=== PATIENT | male | born 1965 | race African-American/Black ===

== ENCOUNTER 2020-09-07 13:59 | Outpatient (RCR) | payer OTHER, SELFPAY | END 2020-11-30 15:50 | disposition home or self-care (01) | LOC: HO.WCC 13:59 | PROVIDERS: PCP Internal Medicine; Visit Provider Physician Assistant | DX: Z09 Encounter for follow-up examination after completed treatment for conditions other than malignant neoplasm (principal); I69.354 Hemiplegia and hemiparesis following cerebral infarction affecting left non-dominant side; I10 Essential (primary) hypertension; Z79.84 Long term (current) use of oral hypoglycemic drugs; Z86.31 Personal history of diabetic foot ulcer | CPT/HCPCS: 10060; 11042; 87071; 87147; 87186; 87205; 99212; 99213 ==

== ENCOUNTER 2020-10-18 14:41 | Outpatient (REF) | payer OTHER, SELFPAY ==
--- NOTE | ~2020-10-18 | XR_ITS ---
EXAMINATION: XR TOES, RIGHT CLINICAL INFORMATION: Ultrasound right great toe. COMPARISON: Radiographs right foot 01/20/2018 TECHNIQUE: 3 views of the right toes were obtained. FINDINGS: There is no acute or healing fracture, dislocation, destructive process. Bony mineralization appears normal. There is no focal decreased bony attenuation, erosive change, or periostitis. There is no gas tracking in the soft tissues. There is some minor spurring dorsal head first proximal phalanx and plantar base first distal phalanx. XR/XR toe RT min 2V IMPRESSION: No bony destructive process, periostitis, or gas tracking in soft tissues.
== END 2020-10-18 14:42 | disposition home or self-care (01) ==
LOC: HO.XRAY 14:41
PROVIDERS: PCP Internal Medicine; Visit Provider Physician Assistant
DX: L97.519 Non-pressure chronic ulcer of other part of right foot with unspecified severity (principal)
CPT/HCPCS: 73660

== ENCOUNTER 2020-11-02 07:37 | Emergency (ER) | payer OTHER, SELFPAY ==
--- NOTE | ~2020-11-02 | CT_ITS ---
EXAMINATION: CT ABDOMEN AND PELVIS WITH CONTRAST CLINICAL INFORMATION: Abdominal pain. COMPARISON: CT abdomen and pelvis with IV contrast 03/17/2018. TECHNIQUE: Multidetector volumetric images were obtained from the superior aspect of the liver through the pubic symphysis following administration 85 mL of Omnipaque 350 intravenous contrast. Sagittal and coronal reformatted images were obtained on the technologist's workstation. Oral contrast: No This CT examination was performed using dose optimization techniques as appropriate, variously including the following: *Automated exposure control *Adjustment of mA and/or kV according to patient size (this includes techniques or standardized protocols for targeted exams where dose is matched to indication/reason for exam; i.e. extremities or head) *Use of iterative reconstruction technique DLP: 1460 mGy-cm FINDINGS: LUNG BASES: There is minimal right basilar atelectasis with elevated right hemidiaphragm. The left lung is clear. The heart size is normal. LIVER, GALLBLADDER, AND BILIARY TREE: The liver is normal in size, shape, and attenuation. No focal hepatic lesion or biliary ductal dilatation is present. The gallbladder has been surgically removed. PANCREAS: Unremarkable. SPLEEN: Unremarkable. ADRENAL GLANDS: Unremarkable. KIDNEYS AND URETERS: The kidneys are normal in size, shape, and attenuation. No hydronephrosis, hydroureter, or calculi seen. There is bilateral perinephric stranding. BLADDER: There is a Pries's catheter in a nondistended urinary bladder. GASTROINTESTINAL TRACT: There is moderate stool seen throughout the colon without any significant distention. The small bowel loops are normal caliber. The appendix is normal caliber. ABDOMINAL WALL: There is small umbilical hernia containing fat. Also visualized is a small ventral hernia to the left of the GE junction containing fat. LYMPH NODES: Normal. VASCULAR: Unremarkable. PELVIC VISCERA: There is a large amount of impacted stool in the rectum and sigmoid colon. There is no free fluid. OSSEOUS STRUCTURES: There is no lytic or sclerotic process seen. There is mild degenerative disc changes with ventral spondylosis throughout dorsal and lumbar spine. No lytic or sclerotic process seen. CT/CT abdomen pelvis w con IMPRESSION: Likely fecal impaction with constipation. No obstruction seen. The bladder is nondistended with a Pires's catheter within. Cholecystectomy.
--- NOTE | ~2020-11-02 | XR_ITS ---
EXAMINATION: XR CHEST CLINICAL INFORMATION: Chest pain COMPARISON: Prior chest November 2018 TECHNIQUE: Frontal view of the chest was obtained. FINDINGS: Minimal linear opacity at the right base similar to prior compatible with scarring or recurrent discoid atelectasis of. Lungs otherwise clear. Cardiac silhouette mediastinum pulmonary vascularity normal. Bone and soft tissues unremarkable. XR/XR chest 1V IMPRESSION: Findings at the right base compatible with recurrent discoid atelectasis or scarring unchanged compared with November 2018.
[2020-11-02 07:48] VITALS: BP 130/85; BP 137/74; PULSE 63; PULSE 76; RESP 18; TEMP 36.8; O2SAT 96; O2SAT 97; BMI 44.6
--- NOTE | 2020-11-02 07:54 | ECG_ITS ---
Test Reason : CP Blood Pressure : / mmHG Vent. Rate : 059 BPM Atrial Rate : 059 BPM P-R Int : 170 ms QRS Dur : 096 ms QT Int : 430 ms P-R-T Axes : 040 015 018 degrees QTc Int : 425 ms Sinus bradycardia Otherwise normal ECG When compared with ECG of 05-DEC-2018 15:14, No significant change was found Referred By: Gloria Terry Electronically Signed By:HOLLY ARMAS MD
--- NOTE | 2020-11-02 07:56 | ED.ABDPAIN ---
HPI - Abdominal Pain General Chief Complaint: Abdominal Pain Stated Complaint: pain Time Seen by Provider: 11/02/20 07:54 History of Present Illness HPI narrative: Patient is a 55-year-old male with a history of diabetes. 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 Presented today with having difficulty with urination. Having difficulty with bowel movements. History of similar symptoms in the past. Patient is from home. He denies any chest pain except when he strained himself he has pain for 1-2 seconds. No diaphoresis. No shortness of breath. No fever no chills no cough no congestion or upper respiratory symptoms. Patient is from home. Have not had a good bowel movement or urination for last 5 days. Related Data Home Medications Medication Instructions Recorded Confirmed acetaminophen 500 mg tablet 500 mg PO Q8H PRN tab 06/07/20 methylphenidate HCl 5 mg tablet 5 mg PO QAM 08/07/20 Previous Rx's Medication Instructions Recorded amlodipine 5 mg tablet 5 mg PO DAILY #90 tab 06/29/20 oxycodone 5 mg tablet 5 mg PO Q8H PRN 7 Days #20 tab 07/06/20 baclofen 10 mg tablet 10 mg PO TID PRN 30 Days #90 tab 07/12/20 metformin 500 mg tablet,extended 500 mg PO BEDTIME #30 tab 07/16/20 release 24 hr ferrous sulfate 325 mg (65 mg 325 mg PO DAILY #90 tab 08/19/20 iron) tablet,delayed release amoxicillin 875 mg-potassium 1 tab PO BID #14 tab 08/24/20 clavulanate 125 mg tablet disposable gloves #1000 ea 09/05/20 incontinence pad, liner, disp #200 ea 09/05/20 aspirin 81 mg chewable tablet 1 tab PO DAILY #90 tab 09/12/20 atorvastatin 40 mg tablet 40 mg PO DAILY 30 Days #30 tab 09/14/20 glyburide 5 mg tablet 5 mg PO BID 90 Days #180 tab 09/14/20 metformin 500 mg tablet,extended 500 mg PO DAILY 90 Days #90 tab 10/01/20 release 24 hr metoprolol tartrate 25 mg tablet 25 mg PO BID 30 Days #60 tab 10/01/20 empagliflozin 10 mg tablet 10 mg PO QAM #30 tab 10/08/20 trazodone 50 mg tablet 50 mg PO BEDTIME #30 tab 10/15/20 polyethylene glycol 3350 [Miralax] 17 g PO BID 14 Days #476 g 11/02/20 tamsulosin [Flomax] 0.4 mg PO BEDTIME #14 cap 11/02/20 Allergies Allergy/AdvReac Type Severity Reaction Status Date / Time No Known Allergies Allergy Unverified 05/10/20 14:37 [No Known Allergies*] metformin AdvReac Unknown diarrhea Verified 04/09/20 00:00 none Allergy Unknown Uncoded 03/08/19 00:00 Review of Systems Review of Systems Constitutional: No Weight loss, No Fever, No Chills, No Night Sweats, No Fatigue, No Malaise ENT/Mouth: No Hearing loss, No Ear Pain, No Nasal Congestion, No Sinus Pain, No Hoarseness, No sore throat, No Rhinorrhea, No Swallowing Difficulty Eyes: No Eye Pain, No Swelling, No Redness, No Foreign Body, No Discharge, No Vision Changes Cardiovascular: No Chest Pain, No SOB, No Dyspnea on Exertion, No Orthopnea, No Edema, No Palpitations Respiratory: No Cough, No Sputum, No Wheezing, No Smoke Exposure, No Dyspnea Gastrointestinal: No Nausea, No Vomiting, No Diarrhea, positive Constipation, No abdominal Pain, No Hematochezia, No Melena Genitourinary: Positive frequency. Positive unable to urinate. Musculoskeletal: No joint pain, No Myalgias, No Joint Swelling Skin: No Skin Lesions, No rash Neuro: No Weakness, No Numbness, No Paresthesias, No Loss of Consciousness, No Dizziness, No Headache Psych: No Anxiety/Panic, No Depression, No SI/HI/AH/VH, No Social Issues, Heme/Lymph: No Bruising, No Bleeding,No Lymphadenopathy Endocrine: No Polyuria, No Polydipsia, No Temperature Intolerance Physical Exam Vital Signs: Vital Signs: Last Vital Signs Temp 98.2 F 11/02/20 11:32 Pulse 70 11/02/20 11:32 Resp 18 11/02/20 11:32 BP 138/83 11/02/20 11:32 Pulse Ox 96 11/02/20 11:32 Body Mass Index 44.6 Appearance: Alert. Oriented X3. No acute distress. Eyes: Pupils equal, round and reactive to light. ENT: Pharynx normal. Neck: Normal inspection. Neck supple. No lymph nodes noted. No crepitus CVS: Normal heart rate and rhythm. Pulses normal. Normal S1 and S2 Respiratory: No respiratory distress. Breath sounds normal. No Wheezing. No rales Abdomen: Soft and nontender. No rigidity. No distention. good BS x4 Skin: Skin warm and dry. Normal skin color. Normal skin turgor. Extremities: No lower extremity edema. Neurovascular intact to all extremities. No Lacerations. No Rash Neuro: Oriented X 3. Left-sided weakness noted. MDM - Abdominal Pain MDM Narrative Medical decision making narrative: Patient has urinary retention. Bladder scan postvoid has over 700 cc of urine. A Pires catheter was placed. Symptom improved. Patient also complained of constipation. Rectal exam done. Patient has lots of soft stool some small amount was removed. A CT scan was done there is no overt obstruction. Patient had a enema which resulted in a large bowel movement. Will continue patient on MiraLax. Follow up Urology for retention. In stable condition. Will discharge home. Lab Data Attestation: I reviewed the patient's lab results. Result diagrams: 11/02/20 08:21 11/02/20 08:21 Labs: Lab Results 11/02/20 11/02/20 11/02/20 Range/Units 08:21 08:21 08:21 WBC 9.6 (4.8-10.8) X10*3/uL RBC 4.89 (4.60-5.80) X10*6/uL Hgb 13.4 L (14.0-18.0) g/dl Hct 42.8 (42-52) % MCV 87.5 (80-98) fL MCH 27.4 (27.0-33.0) pg MCHC 31.3 (31.0-36.0) g/dl RDW 13.9 (11.0-16.0) % Plt Count 275 (160-400) X10*3/uL MPV 9.8 (9.4-12.4) fL Immature Gran % (Auto) 0.3 (0.0-0.4) % Neut % (Auto) 74.5 H (45-73) % Lymph % (Auto) 15.0 L (20-40) % [place] % (Auto) 8.3 (2-11) % Eos % (Auto) 1.6 (0-4) % Baso % (Auto) 0.3 (0-2) % Lymph # (Auto) 1.4 (1.2-4.9) X10*3/uL [place] # (Auto) 0.8 (0.1-1.2) X10*3/uL Eos # (Auto) 0.2 (0.0-0.4) X10*3/uL Baso # (Auto) 0.0 (0.0-0.2) X10*3/uL Abs Immat Gran (auto) 0.03 (0.00-0.03) X10*3/uL Absolute Neuts (auto) 7.2 (2.0-8.3) X10*3/uL Absolute Nucleated RBC 0.000 (0.0-0.012) X10*3/uL Nucleated RBC % (auto) 0.0 (0.0-0.2) /100WBC Hold Blue Top SEE NOTE Sodium 139 (135-145) mmol/L Potassium 4.4 (3.3-5.1) mmol/L Chloride 105 (96-108) mmol/L Carbon Dioxide 23 (22-29) mmol/L Anion Gap 15 (12-20) BUN 17 H (9-16) mg/dL Creatinine 0.91 (0.5-1.4) mg/dL Estim Creat Clear Calc 138.6 Estimated GFR > 60 Random Glucose 142 H (60-115) mg/dL Calcium 8.8 (8.4-10.2) mg/dL Total Bilirubin 0.5 (0.0-1.0) mg/dL AST 16 (5-37) U/L ALT 18 (0-40) U/L Alkaline Phosphatase 75 (39-117) U/L Total Protein 7.2 (6.5-8.0) g/dL Albumin 3.9 (3.5-5.0) g/dL Urine Color Urine Appearance Urine pH (5.0-8.0) Ur Specific [place] (1.005-1.025) Urine Protein (NEG-TRACE) MG/DL Urine Glucose (UA) (NEG) MG/DL Urine Ketones (NEG) MG/DL Urine Blood (NEG) Urine Nitrite (NEG) Ur Leukocyte Esterase (NEG) 11/02/20 Range/Units 08:33 WBC (4.8-10.8) X10*3/uL RBC (4.60-5.80) X10*6/uL Hgb (14.0-18.0) g/dl Hct (42-52) % MCV (80-98) fL MCH (27.0-33.0) pg MCHC (31.0-36.0) g/dl RDW (11.0-16.0) % Plt Count (160-400) X10*3/uL MPV (9.4-12.4) fL Immature Gran % (Auto) (0.0-0.4) % Neut % (Auto) (45-73) % Lymph % (Auto) (20-40) % [place] % (Auto) (2-11) % Eos % (Auto) (0-4) % Baso % (Auto) (0-2) % Lymph # (Auto) (1.2-4.9) X10*3/uL [place] # (Auto) (0.1-1.2) X10*3/uL Eos # (Auto) (0.0-0.4) X10*3/uL Baso # (Auto) (0.0-0.2) X10*3/uL Abs Immat Gran (auto) (0.00-0.03) X10*3/uL Absolute Neuts (auto) (2.0-8.3) X10*3/uL Absolute Nucleated RBC (0.0-0.012) X10*3/uL Nucleated RBC % (auto) (0.0-0.2) /100WBC Hold Blue Top Sodium (135-145) mmol/L Potassium (3.3-5.1) mmol/L Chloride (96-108) mmol/L Carbon Dioxide (22-29) mmol/L Anion Gap (12-20) BUN (9-16) mg/dL Creatinine (0.5-1.4) mg/dL Estim Creat Clear Calc Estimated GFR Random Glucose (60-115) mg/dL Calcium (8.4-10.2) mg/dL Total Bilirubin (0.0-1.0) mg/dL AST (5-37) U/L ALT (0-40) U/L Alkaline Phosphatase (39-117) U/L Total Protein (6.5-8.0) g/dL Albumin (3.5-5.0) g/dL Urine Color YELLOW Urine Appearance CLEAR Urine pH 6.0 (5.0-8.0) Ur Specific [place] 1.020 (1.005-1.025) Urine Protein NEG (NEG-TRACE) MG/DL Urine Glucose (UA) 500 H (NEG) MG/DL Urine Ketones NEG (NEG) MG/DL Urine Blood NEG (NEG) Urine Nitrite NEG (NEG) Ur Leukocyte Esterase NEG (NEG) Discharge Plan Discharge Clinical Impression: Diabetes mellitus, Constipation, Acute urinary retention Patient Disposition: Home, Self-Care Instructions: Constipation (ED), Urinary Retention in Men (ED) Prescriptions: New polyethylene glycol 3350 [Miralax] 17 gram/dose powder 17 g PO BID 14 Days Qty: 476 RF: 0 tamsulosin [Flomax] 0.4 mg capsule 0.4 mg PO BEDTIME Qty: 14 RF: 0 No Action acetaminophen 500 mg tablet 500 mg PO Q8H PRN (Reason: headaches and pain) RF: 0 amlodipine 5 mg tablet 5 mg PO DAILY Qty: 90 RF: 0 oxycodone 5 mg tablet 5 mg PO Q8H PRN (Reason: pain) 7 Days Qty: 20 RF: 0 baclofen 10 mg tablet 10 mg PO TID PRN (Reason: muscle spasm) 30 Days Qty: 90 RF: 3 metformin 500 mg tablet extended release 24 hr 500 mg PO BEDTIME Qty: 30 RF: 0 methylphenidate HCl 5 mg tablet 5 mg PO QAM RF: 0 ferrous sulfate 325 mg (65 mg iron) tablet,delayed release (DR/EC) 325 mg PO DAILY Qty: 90 RF: 1 amoxicillin-pot clavulanate [Augmentin] 875-125 mg tablet 1 tab PO BID Qty: 14 RF: 0 (DME) disposable gloves [Nitrile Exam Gloves] Misc See Rx Instructions .ROUTE .MEDSUPPLY Qty: 1000 RF: 12 (DME) incontinence pad, liner, disp Pad See Rx Instructions .ROUTE .MEDSUPPLY Qty: 200 RF: 12 aspirin 81 mg tablet,chewable 1 tab PO DAILY Qty: 90 RF: 0 atorvastatin 40 mg tablet 40 mg PO DAILY 30 Days Qty: 30 RF: 5 glyburide 5 mg tablet 5 mg PO BID 90 Days Qty: 180 RF: 1 metformin 500 mg tablet extended release 24 hr 500 mg PO DAILY 90 Days Qty: 90 RF: 1 metoprolol tartrate 25 mg tablet 25 mg PO BID 30 Days Qty: 60 RF: 5 empagliflozin [Jardiance] 10 mg tablet 10 mg PO QAM Qty: 30 RF: 1 trazodone 50 mg tablet 50 mg PO BEDTIME Qty: 30 RF: 3 Referrals: Silvino Vazquez MD [Primary Care Provider] - 2 days Curtis Boston MD [Physician] - 2 days [facility], [facility] Past Medical History Medical History CVA (cerebral vascular accident) Diabetes mellitus HTN (hypertension) Incontinence Social History Social History Alcohol intake: never Smoking Status: Never smoker Use of substances other than those prescribed or required for medical reasons: No Advance Directives: No Advance Directives Information Provided: No
[2020-11-02] MEDS: Sodium Phosphate,Mono-Dibasic 133 ML ENEMA PR (08:27)
[2020-11-02 08:30] LABS: MANUAL DIFF FLAG NO
[2020-11-02 08:33] LABS: Basophils Percent Auto 0.3 % (0-2); Eosinophils Absolute Auto 0.2 X10*3/uL (0.0-0.4); Eosinophils Percent Auto 1.6 % (0-4); Hematocrit 42.8 % (42-52); Hemoglobin 13.4 g/dl (14.0-18.0); Imm Gran Abs Auto 0.03 X10*3/uL (0.00-0.03); Imm Gran Pct Auto 0.3 % (0.0-0.4); Lymphocytes Absolute Auto 1.4 X10*3/uL (1.2-4.9); Mean Corpuscular HGB Conc 31.3 g/dl (31.0-36.0); Mean Corpuscular Hemoglobin 27.4 pg (27.0-33.0); Mean Corpuscular Volume 87.5 fL (80-98); Mean Platelet Volume 9.8 fL (9.4-12.4); Monocytes Absolute Auto 0.8 X10*3/uL (0.1-1.2); Monocytes Percent Auto 8.3 % (2-11); Neutrophils Absolute Auto 7.2 X10*3/uL (2.0-8.3); Neutrophils Percent Auto 74.5 % (45-73); Platelet Count 275 X10*3/uL (160-400); Red Blood Count 4.89 X10*6/uL (4.60-5.80); Red Cell Distribution Width 13.9 % (11.0-16.0); White Blood Count 9.6 X10*3/uL (4.8-10.8)
[2020-11-02 08:43] LABS: Glucose Urine UA 500 MG/DL (NEG); Leukocyte Esterase Urine NEG (NEG); Nitrite Urine NEG (NEG); Urine Blood NEG (NEG); Urine Ketones NEG (NEG); Urine Protein NEG (NEG-TRACE)
[2020-11-02 08:44] LABS: Appearance Urine CLEAR; Color Urine YELLOW
[2020-11-02 09:12] LABS: Alanine Aminotransferase 18 U/L (0-40); Albumin Level 3.9 g/dL (3.5-5.0); Alkaline Phosphatase 75 U/L (39-117); Anion Gap 15 (12-20); Aspartate Amino Transferase 16 U/L (5-37); Bilirubin Total 0.5 mg/dL (0.0-1.0); Blood Urea Nitrogen 17 mg/dL (9-16); Calcium 8.8 mg/dL (8.4-10.2); Carbon Dioxide 23 mmol/L (22-29); Chloride 105 mmol/L (96-108); Creatinine Clr Calc Pharmacy 138.6; Estimated Glomerular Filt Rate > 60; Glucose Random 142 mg/dL (60-115); Potassium 4.4 mmol/L (3.3-5.1); Sodium 139 mmol/L (135-145); Total Protein 7.2 g/dL (6.5-8.0)
--- NOTE | 2020-11-02 10:11 | PC.NURSE ---
pt able to have 3 large bm w disimpaction and fleet enem, urinary catheter draining clear yellow urine. awaiting ct scan. pain improved.
[2020-11-02 11:32] VITALS: BP 138/83; PULSE 70; RESP 18; TEMP 36.8; O2SAT 96
== END 2020-11-02 17:20 | disposition home or self-care (01) ==
PROVIDERS: Emergency Provider Emergency Medicine Emergency Medical Services; PCP Internal Medicine
DX: R33.9 Retention of urine, unspecified (principal); K59.00 Constipation, unspecified; E11.9 Type 2 diabetes mellitus without complications; I69.354 Hemiplegia and hemiparesis following cerebral infarction affecting left non-dominant side; I10 Essential (primary) hypertension
CPT/HCPCS: 36415; 51702; 51798; 71045; 74177; 80053; 81003; 85025; 93005; 99284; Q9967

== ENCOUNTER → 2020-11-16 10:52 | Outpatient (BNVA) | payer OTHER, SELFPAY | PROVIDERS: PCP Internal Medicine; Visit Provider Urology ==

== ENCOUNTER → 2020-12-20 14:07 | Outpatient (BNVA) | payer OTHER, SELFPAY | PROVIDERS: PCP Internal Medicine; Visit Provider Urology | DX: R33.9 Retention of urine, unspecified (principal); N32.0 Bladder-neck obstruction | CPT/HCPCS: 99212 ==

== ENCOUNTER 2021-01-28 07:44 | Emergency (ER) | payer OTHER, SELFPAY ==
--- NOTE | ~2021-01-28 | XR_ITS ---
EXAMINATION: XR CHEST CLINICAL INFORMATION: Chest pain COMPARISON: Chest x-ray 11/02/2000 TECHNIQUE: Frontal view of the chest was obtained. FINDINGS: Lungs are hypoexpanded but clear of acute process. The heart size enlarged. Pulmonary vascularity is normal. No gross bony abnormality seen. XR/XR chest 1V IMPRESSION: Mild cardiomegaly. Hypoexpanded lungs without acute process.
--- NOTE | 2021-01-28 07:47 | ED_ITS ---
HPI - Chest Pain General Chief Complaint: Chest Pain Stated Complaint: CHEST PAIN SINCE LAST NIGHT Time Seen by Provider: 01/28/21 07:47 Source: patient Mode of arrival: EMS Limitations: no limitations History of Present Illness HPI narrative: Patient had chest pain last night, described as pressure, pain was constant since 11:30, 9 hours ago. Patient feels the pain in his back and neck. Denies shortness of breath. Patient took a full ASA this morning by the paramedics MD complaint: chest pain Pertinent past history: other (CVA) Onset (ago): hour(s) Timing of current episode: constant Onset: during rest Pain location: left chest Pain radiation: back and neck Severity: mild Quality: aching Relieving factors: nothing Exacerbating factors: nothing Treatment prior to arrival: aspirin Risk Factors Coronary artery disease risk factors: diabetes, hyperlipidemia and hypertension Related Data Home Medications Medication Instructions Recorded Confirmed acetaminophen 500 mg tablet 500 mg PO Q8H PRN tab 06/07/20 12/07/20 blood sugar diagnostic #10 ea 11/16/20 lancets 28 gauge #100 ea 11/16/20 methylphenidate HCl 5 mg tablet 5 mg PO DAILY 11/16/20 12/07/20 sumatriptan succinate 50 mg tablet mg PO 11/16/20 12/07/20 Previous Rx's Medication Instructions Recorded ferrous sulfate 325 mg (65 mg 325 mg PO DAILY #90 tab 08/19/20 iron) tablet,delayed release disposable gloves #1000 ea 09/05/20 incontinence pad, liner, disp #200 ea 09/05/20 aspirin 81 mg chewable tablet 1 tab PO DAILY #90 tab 09/12/20 atorvastatin 40 mg tablet 40 mg PO DAILY 30 Days #30 tab 09/14/20 trazodone 50 mg tablet 50 mg PO BEDTIME #30 tab 10/15/20 finasteride 5 mg tablet 5 mg PO DAILY 90 Days #90 tab 11/16/20 tamsulosin 0.4 mg capsule 0.4 mg PO BEDTIME 90 Days #90 cap 11/16/20 baclofen 10 mg tablet 10 mg PO TID PRN 30 Days #90 tab 11/18/20 empagliflozin 10 mg tablet 10 mg PO QAM #30 tab 12/05/20 polyethylene glycol 3350 17 17 g PO BID 30 Days #1020 g 12/10/20 gram/dose oral powder lisinopril 40 mg tablet 40 mg PO DAILY #30 tab 12/11/20 metoprolol tartrate 25 mg tablet 25 mg PO BID 30 Days #60 tab 12/15/20 glyburide 5 mg tablet 5 mg PO BID #180 tab 12/18/20 amlodipine 5 mg tablet 5 mg PO DAILY #150 tab 01/04/21 metformin 500 mg tablet,extended 500 mg PO DAILY #90 tab 01/13/21 release 24 hr oxycodone 5 mg tablet 5 mg PO Q8H PRN 7 Days #20 tab 01/17/21 cephalexin 500 mg PO QID 7 Days #28 cap 01/28/21 Allergies Allergy/AdvReac Type Severity Reaction Status Date / Time metformin AdvReac Unknown diarrhea Verified 12/20/20 14:13 Review of Systems Constitutional: Constitutional: Reports no additional constitutional complaints Eyes: Eyes: Reports no additional eye complaints ENT: Denies dizziness Cardiovascular: Cardiovascular: Reports no additional cardiovascular complaints Respiratory: Respiratory: Reports as per HPI Gastrointestinal: Gastrointestinal: Reports no additional gastrointestinal complaints Musculoskeletal: Musculoskeletal: Reports no additional musculoskeletal complaints Integumentary/Breasts: Skin/Breast: Denies rash Neurologic: Reports system reviewed and no additional complaints, except as documented, Denies dizziness and Denies Sensory deficit (Neuro) Psychiatric: Psychiatric: Denies anxiety [facility] Past Medical History Medical History Arthritis of left hip Benign essential hypertension Constipation CVA (cerebral vascular accident) (~02/2016) Diabetes mellitus Enlarged prostate HTN (hypertension) Incontinence Insomnia Low back pain Obesity (BMI 30-39.9) Pure hypercholesterolemia Urinary frequency Vitamin D deficiency Surgical History S/P laparoscopic cholecystectomy (~07/2017) Family History Family History Mother Diabetes Hypertension High cholesterol CHF (congestive heart failure) Father Hypertension Heart problem Social History Social History Alcohol intake: current Alcohol intake frequency: holidays/special occasions only Patient Tobacco Use Status: Never used Tobacco Use of substances other than those prescribed or required for medical reasons: No Advance Directives: No Advance Directives Information Provided: Yes Physical Exam Vital Signs: Vital Signs: Last Vital Signs Temp 100.4 F 01/28/21 07:55 Pulse 78 01/28/21 11:07 Resp 15 01/28/21 11:07 BP 135/68 01/28/21 11:07 Pulse Ox 94 01/28/21 11:07 Body Mass Index 38.1 Const: Nutritional Appearance: obese Orientation/consciousness: oriented to person and patient oriented x3 Limitations: no limitations HENMT: Head: Yes normal to inspection Ears: external ears normal General nose exam: Normal external nose present Mouth: Normal oral and palatal mucosa present and oropharynx normal Throat: Yes posterior oropharynx normal Eyes: General: appearance normal, both eyes and all related structures Neck: Other: supple Neck: Yes normal visual inspection Chest: Chest palpation & inspection: normal inspection of the chest Resp: Auscultation: clear to auscultation bilaterally Cardio: Jugular venous distension: no JVD Rate: regular rate Rhythm: regular rhythm Heart sounds: S1 normal heart sound present and S2 normal heart sound present GI: Inspection: Yes normal to inspection Palpation (GI): Soft to palpation, nontender and No hepatosplenomegaly present Auscultation: normal bowel sounds : General: Yes no CVA tenderness Back/Spine/Pelvis: Back: no CVA tenderness Skin: General skin exam: no rashes or lesions noted Neuro: Other: Left sided hemiparesis from old stroke General: oriented to person and patient oriented x3 Cranial nerves: Yes CN's II-XII intact bilat erally Sensory Exam: No Sensory deficit (Neuro) Extrem: General: Yes normal to inspection Psych: Appearance: grossly normal Course Course Course Narrative: despite multiple risk factors patient has had second troponin which was negative. His pain has been constant for days and is not likely to be cardiac will dc home with non cardiac chest pain Reevaluation(s) Reevaluation #1: patient did have a low grade fever and has 10-14 WBCs on UA and WBC of 14. Will give keflex for UTI MDM - Chest Pain Lab Data Result diagrams: 01/28/21 08:53 01/28/21 08:53 Labs: Lab Results 01/28/21 01/28/21 01/28/21 Range/Units 08:53 08:53 08:53 WBC 14.7 H (4.8-10.8) X10*3/uL RBC 5.06 (4.60-5.80) X10*6/uL Hgb 13.7 L (14.0-18.0) g/dl Hct 43.7 (42-52) % MCV 86.4 (80-98) fL MCH 27.1 (27.0-33.0) pg MCHC 31.4 (31.0-36.0) g/dl RDW 15.0 (11.0-16.0) % Plt Count 247 (160-400) X10*3/uL MPV 9.8 (9.4-12.4) fL Immature Gran % (Auto) 0.3 (0.0-0.4) % Neut % (Auto) 89.3 H (45-73) % Lymph % (Auto) 5.3 L (20-40) % [place] % (Auto) 4.9 (2-11) % Eos % (Auto) 0.1 (0-4) % Baso % (Auto) 0.1 (0-2) % Lymph # (Auto) 0.8 L (1.2-4.9) X10*3/uL [place] # (Auto) 0.7 (0.1-1.2) X10*3/uL Eos # (Auto) 0.0 (0.0-0.4) X10*3/uL Baso # (Auto) 0.0 (0.0-0.2) X10*3/uL Abs Immat Gran (auto) 0.05 H (0.00-0.03) X10*3/uL Absolute Neuts (auto) 13.2 H (2.0-8.3) X10*3/uL Absolute Nucleated RBC 0.000 (0.0-0.012) X10*3/uL Nucleated RBC % (auto) 0.0 (0.0-0.2) /100WBC Sodium 139 (135-145) mmol/L Potassium 4.9 (3.3-5.1) mmol/L Chloride 106 (96-108) mmol/L Carbon Dioxide 24 (22-29) mmol/L Anion Gap 14 (12-20) BUN 16 (9-16) mg/dL Creatinine 1.10 (0.5-1.4) mg/dL Estim Creat Clear Calc 107.1 Estimated GFR > 60 Random Glucose 160 H (60-115) mg/dL Calcium 9.1 (8.4-10.2) mg/dL Troponin I High Sens < 3.5 (<3.5-35.0) ng/L Urine Color Urine Appearance Urine pH (5.0-8.0) Ur Specific [place] (1.005-1.025) Urine Protein (NEG-TRACE) MG/DL Urine Glucose (UA) (NEG) MG/DL Urine Ketones (NEG) MG/DL Urine Blood (NEG) Urine Nitrite (NEG) Ur Leukocyte Esterase (NEG) Urine RBC (0) /HPF Urine WBC (0-4) /HPF Ur Squamous Epith Cells /LPF Urine Bacteria /LPF 01/28/21 01/28/21 Range/Units 09:35 11:14 WBC (4.8-10.8) X10*3/uL RBC (4.60-5.80) X10*6/uL Hgb (14.0-18.0) g/dl Hct (42-52) % MCV (80-98) fL MCH (27.0-33.0) pg MCHC (31.0-36.0) g/dl RDW (11.0-16.0) % Plt Count (160-400) X10*3/uL MPV (9.4-12.4) fL Immature Gran % (Auto) (0.0-0.4) % Neut % (Auto) (45-73) % Lymph % (Auto) (20-40) % [place] % (Auto) (2-11) % Eos % (Auto) (0-4) % Baso % (Auto) (0-2) % Lymph # (Auto) (1.2-4.9) X10*3/uL [place] # (Auto) (0.1-1.2) X10*3/uL Eos # (Auto) (0.0-0.4) X10*3/uL Baso # (Auto) (0.0-0.2) X10*3/uL Abs Immat Gran (auto) (0.00-0.03) X10*3/uL Absolute Neuts (auto) (2.0-8.3) X10*3/uL Absolute Nucleated RBC (0.0-0.012) X10*3/uL Nucleated RBC % (auto) (0.0-0.2) /100WBC Sodium (135-145) mmol/L Potassium (3.3-5.1) mmol/L Chloride (96-108) mmol/L Carbon Dioxide (22-29) mmol/L Anion Gap (12-20) BUN (9-16) mg/dL Creatinine (0.5-1.4) mg/dL Estim Creat Clear Calc Estimated GFR Random Glucose (60-115) mg/dL Calcium (8.4-10.2) mg/dL Troponin I High Sens < 3.5 (<3.5-35.0) ng/L Urine Color YELLOW Urine Appearance CLOUDY Urine pH 6.0 (5.0-8.0) Ur Specific [place] 1.020 (1.005-1.025) Urine Protein TRACE (NEG-TRACE) MG/DL Urine Glucose (UA) >=1000 H (NEG) MG/DL Urine Ketones NEG (NEG) MG/DL Urine Blood NEG (NEG) Urine Nitrite NEG (NEG) Ur Leukocyte Esterase NEG (NEG) Urine RBC 0-2 (0) /HPF Urine WBC 10-14 H (0-4) /HPF Ur Squamous Epith Cells TRACE /LPF Urine Bacteria 3+ /LPF ECG Data ECG #1: Attestation: I personally reviewed and interpreted this ECG as follows: Interpretation: normal sinus rate 70, no st or twave changes Discharge Plan Discharge Clinical Impression: Atypical chest pain Urinary tract infection Qualifiers: Urinary tract infection type: acute cystitis Hematuria presence: without hematuria Qualified Code(s): N30.00 - Acute cystitis without hematuria Patient Disposition: Home, Self-Care Instructions: Chest Pain (ED), Urinary Tract Infection in Men (ED) Prescriptions: New cephalexin 500 mg capsule 500 mg PO QID 7 Days Qty: 28 RF: 0 No Action acetaminophen 500 mg tablet 500 mg PO Q8H PRN (Reason: headaches and pain) RF: 0 ferrous sulfate 325 mg (65 mg iron) tablet,delayed release (DR/EC) 325 mg PO DAILY Qty: 90 RF: 1 (DME) disposable gloves [Nitrile Exam Gloves] Misc See Rx Instructions .ROUTE .MEDSUPPLY Qty: 1000 RF: 12 (DME) incontinence pad, liner, disp Pad See Rx Instructions .ROUTE .MEDSUPPLY Qty: 200 RF: 12 aspirin 81 mg tablet,chewable 1 tab PO DAILY Qty: 90 RF: 0 atorvastatin 40 mg tablet 40 mg PO DAILY 30 Days Qty: 30 RF: 5 trazodone 50 mg tablet 50 mg PO BEDTIME Qty: 30 RF: 3 baclofen 10 mg tablet 10 mg PO TID PRN (Reason: muscle spasm) 30 Days Qty: 90 RF: 3 Jardiance 10 mg tablet 10 mg PO QAM Qty: 30 RF: 1 polyethylene glycol 3350 [Miralax] 17 gram/dose powder 17 g PO BID 30 Days Qty: 1020 RF: 12 lisinopril 40 mg tablet 40 mg PO DAILY Qty: 30 RF: 3 metoprolol tartrate 25 mg tablet 25 mg PO BID 30 Days Qty: 60 RF: 5 glyburide 5 mg tablet 5 mg PO BID Qty: 180 RF: 1 amlodipine 5 mg tablet 5 mg PO DAILY Qty: 150 RF: 0 metformin 500 mg tablet extended release 24 hr 500 mg PO DAILY Qty: 90 RF: 1 oxycodone 5 mg tablet 5 mg PO Q8H PRN (Reason: pain) 7 Days Qty: 20 RF: 0 methylphenidate HCl 5 mg tablet 5 mg PO DAILY RF: 0 (DME) FreeStyle Lite Strips Strip See Rx Instructions ea Not Applicable BID Qty: 10 RF: 0 (DME) lancets 28 gauge misc See Rx Instructions ea topical BID Qty: 100 RF: 0 sumatriptan succinate 50 mg tablet PO RF: 0 finasteride 5 mg tablet 5 mg PO DAILY 90 Days Qty: 90 RF: 1 tamsulosin [Flomax] 0.4 mg capsule 0.4 mg PO BEDTIME 90 Days Qty: 90 RF: 1 Referrals: Silvino Vazquez MD [Primary Care Provider] - 1 week
[2021-01-28 07:55] VITALS: BP 134/67; PULSE 75; RESP 13; TEMP 38; O2SAT 96; BMI 38.1
--- NOTE | 2021-01-28 07:55 | ECG_ITS ---
Test Reason : CHEST PAIN Blood Pressure : / mmHG Vent. Rate : 072 BPM Atrial Rate : 072 BPM P-R Int : 180 ms QRS Dur : 086 ms QT Int : 382 ms P-R-T Axes : 022 019 026 degrees QTc Int : 418 ms Normal sinus rhythm Normal ECG When compared with ECG of 02-NOV-2020 08:11, No significant change was found Referred By: Koko Koroma Electronically Signed By:HOLLY ARMAS MD
[2021-01-28 08:00] VITALS: BP 118/102; PULSE 74; O2SAT 95
[2021-01-28 09:00] LABS: MANUAL DIFF FLAG NO
[2021-01-28 09:02] LABS: Basophils Percent Auto 0.1 % (0-2); Eosinophils Percent Auto 0.1 % (0-4); Hematocrit 43.7 % (42-52); Hemoglobin 13.7 g/dl (14.0-18.0); Imm Gran Abs Auto 0.05 X10*3/uL (0.00-0.03); Imm Gran Pct Auto 0.3 % (0.0-0.4); Lymphocytes Absolute Auto 0.8 X10*3/uL (1.2-4.9); Lymphocytes Percent Auto 5.3 % (20-40); Mean Corpuscular HGB Conc 31.4 g/dl (31.0-36.0); Mean Corpuscular Hemoglobin 27.1 pg (27.0-33.0); Mean Corpuscular Volume 86.4 fL (80-98); Mean Platelet Volume 9.8 fL (9.4-12.4); Monocytes Absolute Auto 0.7 X10*3/uL (0.1-1.2); Monocytes Percent Auto 4.9 % (2-11); Neutrophils Absolute Auto 13.2 X10*3/uL (2.0-8.3); Neutrophils Percent Auto 89.3 % (45-73); Platelet Count 247 X10*3/uL (160-400); Red Blood Count 5.06 X10*6/uL (4.60-5.80); White Blood Count 14.7 X10*3/uL (4.8-10.8)
[2021-01-28 09:30] LABS: Anion Gap 14 (12-20); Blood Urea Nitrogen 16 mg/dL (9-16); Calcium 9.1 mg/dL (8.4-10.2); Carbon Dioxide 24 mmol/L (22-29); Chloride 106 mmol/L (96-108); Creatinine Clr Calc Pharmacy 107.1; Estimated Glomerular Filt Rate > 60; Glucose Random 160 mg/dL (60-115); Potassium 4.9 mmol/L (3.3-5.1); Sodium 139 mmol/L (135-145)
[2021-01-28 09:37] LABS: Troponin-I High Sensitivity < 3.5 ng/L (<3.5-35.0)
[2021-01-28 09:48] LABS: Appearance Urine CLOUDY; Color Urine YELLOW; Glucose Urine UA >=1000 MG/DL (NEG); Leukocyte Esterase Urine NEG (NEG); Nitrite Urine NEG (NEG); Urine Blood NEG (NEG); Urine Ketones NEG (NEG); Urine Protein TRACE MG/DL (NEG-TRACE)
[2021-01-28 10:01] LABS: Bacteria Urine 3+ /LPF; RBC Urine 0-2 /HPF (0); Squamous Epithelial Cell Urine TRACE /LPF
[2021-01-28 11:07] VITALS: BP 135/68; PULSE 78; RESP 15; O2SAT 94
[2021-01-28 11:57] LABS: Troponin-I High Sensitivity < 3.5 ng/L (<3.5-35.0)
[2021-01-28 12:00] VITALS: BP 119/64; PULSE 79; RESP 13; O2SAT 95
[2021-01-28 12:24] VITALS: TEMP 36.9
[2021-01-28] MEDS: cephALEXin 500 MG CAPSULE PO (12:26)
== END 2021-01-28 12:54 | disposition home or self-care (01) ==
PROVIDERS: Emergency Provider Emergency Medicine; PCP Internal Medicine
DX: R07.89 Other chest pain (principal); N30.00 Acute cystitis without hematuria; M54.5 Low back pain; M54.2 Cervicalgia; I10 Essential (primary) hypertension; Z79.899 Other long term (current) drug therapy
CPT/HCPCS: 36415; 71045; 80048; 81001; 84484; 85025; 93005; 96365; 99285

== ENCOUNTER 2021-08-02 10:08 | Outpatient (REF) | payer OTHER, SELFPAY ==
[2021-08-02 13:53] LABS: MANUAL DIFF FLAG NO
[2021-08-02 13:54] LABS: Appearance Urine HAZY; Color Urine YELLOW; Glucose Urine UA >=1000 MG/DL (NEG); Leukocyte Esterase Urine NEG (NEG); Nitrite Urine NEG (NEG); PH 6.5 (5.0-8.0); Urine Blood NEG (NEG); Urine Ketones NEG (NEG); Urine Protein TRACE MG/DL (NEG-TRACE)
[2021-08-02 14:03] LABS: Basophils Absolute Auto 0.1 X10*3/uL (0.0-0.2); Basophils Percent Auto 0.5 % (0-2); Eosinophils Absolute Auto 0.3 X10*3/uL (0.0-0.4); Eosinophils Percent Auto 3.4 % (0-4); Hematocrit 43.8 % (42.0-52.0); Hemoglobin 13.5 g/dl (14.0-18.0); Imm Gran Abs Auto 0.04 X10*3/uL (0.00-0.03); Imm Gran Pct Auto 0.4 % (0.0-0.4); Lymphocytes Absolute Auto 2.8 X10*3/uL (1.2-4.9); Lymphocytes Percent Auto 28.9 % (20-40); Mean Corpuscular HGB Conc 30.8 g/dl (31.0-36.0); Mean Corpuscular Hemoglobin 27.2 pg (27.0-33.0); Mean Corpuscular Volume 88.1 fL (80.0-98.0); Mean Platelet Volume 10.7 fL (9.4-12.4); Monocytes Absolute Auto 0.7 X10*3/uL (0.1-1.2); Neutrophils Absolute Auto 5.7 x10*3/uL (2.0-8.3); Neutrophils Percent Auto 59.8 % (45-73); Platelet Count 300 X10*3/uL (160-400); Red Blood Count 4.97 X10*6/uL (4.60-5.80); Red Cell Distribution Width 14.7 % (11.0-16.0); White Blood Count 9.6 X10*3/uL (4.8-10.8)
[2021-08-02 14:14] LABS: Estimated Average Glucose 151 mg/dL; Hemoglobin A1c % 6.9 %
[2021-08-02 14:24] LABS: Bacteria Urine 4+ /LPF; RBC Urine 0 /HPF (0); Squamous Epithelial Cell Urine TRACE /LPF; WBC Urine 30-49 /HPF (0-4)
[2021-08-02 14:27] LABS: Creatinine Urine 107.79 mg/dL; Microalbum/Creatinine Ratio Ur 144.7 ug/mg cr
[2021-08-02 14:31] LABS: Alanine Aminotransferase 16 U/L (0-40); Albumin Level 3.9 g/dL (3.5-5.0); Alkaline Phosphatase 66 U/L (39-117); Anion Gap 14 (12-20); Aspartate Amino Transferase 13 U/L (5-37); Bilirubin Total 0.4 mg/dL (0.0-1.0); Blood Urea Nitrogen 18 mg/dL (9-16); Carbon Dioxide 25 mmol/L (22-29); Chloride 106 mmol/L (96-108); Cholesterol 163 mg/dL; Estimated Glomerular Filt Rate > 60; Glucose Fasting 106 mg/dL (60-99); Potassium 4.9 mmol/L (3.3-5.1); Sodium 140 mmol/L (135-145); Triglycerides 122 mg/dL
[2021-08-02 14:39] LABS: TSH reflex Free T4 0.83 uIU/mL (0.32-4.0); Vitamin D 25-OH Total 24.8 ng/mL (>30)
[2021-08-02 14:41] LABS: HDL Cholesterol 38 mg/dL; LDL Cholesterol Calculated 101 mg/dl
== END 2021-08-02 10:09 | disposition home or self-care (01) ==
LOC: HO.10HDL 10:08
PROVIDERS: Visit Provider Internal Medicine
DX: E11.59 Type 2 diabetes mellitus with other circulatory complications (principal); E78.00 Pure hypercholesterolemia, unspecified; I10 Essential (primary) hypertension; E66.9 Obesity, unspecified; E55.9 Vitamin D deficiency, unspecified
CPT/HCPCS: 36415; 80053; 80061; 81001; 82043; 82306; 83036; 84443; 85025; 87086; 87147

== ENCOUNTER → 2021-12-02 13:27 | Outpatient (BNVA) | payer OTHER, SELFPAY | PROVIDERS: PCP Internal Medicine; Referring Provider Internal Medicine; Visit Provider Physician Assistant | DX: R19.8 Other specified symptoms and signs involving the digestive system and abdomen (principal) | CPT/HCPCS: 99202 ==

== ENCOUNTER → 2021-12-03 09:05 | Outpatient (BNVA) | payer OTHER, SELFPAY | PROVIDERS: PCP Internal Medicine; Visit Provider Urology | DX: R33.9 Retention of urine, unspecified (principal); N32.0 Bladder-neck obstruction; Z79.899 Other long term (current) drug therapy; Z99.3 Dependence on wheelchair | CPT/HCPCS: 51798; 99212 ==

== ENCOUNTER → 2022-01-13 13:32 | Outpatient (BNVA) | payer OTHER, SELFPAY | PROVIDERS: PCP Internal Medicine; Visit Provider Physician Assistant | DX: Z13.89 Encounter for screening for other disorder (principal) ==

== ENCOUNTER 2022-06-10 09:40 | Outpatient (REF) | payer OTHER, SELFPAY ==
[2022-06-10 11:16] LABS: MANUAL DIFF FLAG NO
[2022-06-10 11:39] LABS: Basophils Percent Auto 0.4 % (0-2); Eosinophils Absolute Auto 0.2 X10*3/uL (0.0-0.4); Hematocrit 41.7 % (42.0-52.0); Hemoglobin 13.2 g/dl (14.0-18.0); Imm Gran Abs Auto 0.04 X10*3/uL (0.00-0.03); Imm Gran Pct Auto 0.4 % (0.0-0.4); Lymphocytes Absolute Auto 2.9 X10*3/uL (1.2-4.9); Lymphocytes Percent Auto 29.6 % (20-40); Mean Corpuscular HGB Conc 31.7 g/dl (31.0-36.0); Mean Corpuscular Hemoglobin 27.8 pg (27.0-33.0); Mean Corpuscular Volume 87.8 fL (80.0-98.0); Mean Platelet Volume 10.5 fL (9.4-12.4); Monocytes Absolute Auto 0.7 X10*3/uL (0.1-1.2); Monocytes Percent Auto 7.3 % (2-11); Neutrophils Percent Auto 60.3 % (45-73); Platelet Count 316 X10*3/uL (160-400); Red Blood Count 4.75 X10*6/uL (4.60-5.80); Red Cell Distribution Width 14.2 % (11.0-16.0); White Blood Count 9.9 X10*3/uL (4.8-10.8)
[2022-06-10 12:06] LABS: Estimated Average Glucose 143 mg/dL; Hemoglobin A1c % 6.6 %
[2022-06-10 12:10] LABS: Alanine Aminotransferase 18 U/L (0-40); Albumin Level 3.9 g/dL (3.5-5.0); Alkaline Phosphatase 68 U/L (39-117); Anion Gap 16 (12-20); Aspartate Amino Transferase 14 U/L (5-37); Bilirubin Total 0.5 mg/dL (0.0-1.0); Blood Urea Nitrogen 21 mg/dL (9-16); Carbon Dioxide 27 mmol/L (22-29); Chloride 102 mmol/L (96-108); Cholesterol 180 mg/dL; Estimated Glomerular Filt Rate > 60; Glucose Fasting 112 mg/dL (60-99); HDL Cholesterol 40 mg/dL; LDL Cholesterol Calculated 110 mg/dl; Potassium 5.1 mmol/L (3.3-5.1); Sodium 140 mmol/L (135-145); Total Protein 7.1 g/dL (6.5-8.0); Triglycerides 151 mg/dL
[2022-06-10 12:17] LABS: TSH reflex Free T4 0.98 uIU/mL (0.32-4.0); Vitamin D 25-OH Total 36.2 ng/mL (>30)
[2022-06-10 12:27] LABS: Appearance Urine Clear; Color Urine Yellow; Glucose Urine UA 500 mg/dL (Negative); Leukocyte Esterase Urine Negative (Negative); Nitrite Urine Negative (Negative); PH 5.5 (5.0-9.0); Specific Gravity - Urine >= 1.030 (1.005-1.025); Urine Blood Negative (Negative); Urine Ketones Negative (Negative); Urine Protein Negative (Neg-Trace)
[2022-06-10 12:41] LABS: Creatinine Urine 108.83 mg/dL; Microalbum/Creatinine Ratio Ur 54.2 ug/mg cr
== END 2022-06-10 09:41 | disposition home or self-care (01) ==
LOC: HO.HMGCLDS 09:40
PROVIDERS: PCP Internal Medicine; Visit Provider Internal Medicine
DX: I10 Essential (primary) hypertension (principal); E55.9 Vitamin D deficiency, unspecified; E78.00 Pure hypercholesterolemia, unspecified; E11.9 Type 2 diabetes mellitus without complications
CPT/HCPCS: 36415; 80053; 80061; 81003; 82043; 82306; 83036; 84443; 85025

== ENCOUNTER → 2023-01-12 10:51 | Outpatient (BNVA) | payer OTHER, SELFPAY | PROVIDERS: PCP Internal Medicine; Referring Provider Internal Medicine; Visit Provider Internal Medicine Cardiovascular Disease | DX: R00.1 Bradycardia, unspecified (principal); I62.9 Nontraumatic intracranial hemorrhage, unspecified; G81.94 Hemiplegia, unspecified affecting left nondominant side; I10 Essential (primary) hypertension; E78.00 Pure hypercholesterolemia, unspecified; E55.9 Vitamin D deficiency, unspecified; Z99.3 Dependence on wheelchair | CPT/HCPCS: 93005; 99202 ==

== ENCOUNTER 2023-01-13 09:17 | Outpatient (REF) | payer OTHER, SELFPAY ==
[2023-01-13 11:20] LABS: MANUAL DIFF FLAG NO
[2023-01-13 11:37] LABS: Basophils Absolute Auto 0.1 X10*3/uL (0.0-0.2); Basophils Percent Auto 0.8 % (0-2); Eosinophils Absolute Auto 0.2 X10*3/uL (0.0-0.4); Eosinophils Percent Auto 2.2 % (0-4); Hematocrit 44.1 % (42.0-52.0); Hemoglobin 13.5 g/dl (14.0-18.0); Imm Gran Abs Auto 0.02 X10*3/uL (0.00-0.03); Imm Gran Pct Auto 0.3 % (0.0-0.4); Lymphocytes Absolute Auto 2.4 X10*3/uL (1.2-4.9); Lymphocytes Percent Auto 31.2 % (20-40); Mean Corpuscular HGB Conc 30.6 g/dl (31.0-36.0); Mean Corpuscular Hemoglobin 26.9 pg (27.0-33.0); Mean Platelet Volume 10.7 fL (9.4-12.4); Monocytes Absolute Auto 0.6 X10*3/uL (0.1-1.2); Monocytes Percent Auto 7.6 % (2-11); Neutrophils Absolute Auto 4.4 x10*3/uL (2.0-8.3); Neutrophils Percent Auto 57.9 % (45-73); Platelet Count 248 X10*3/uL (160-400); Red Blood Count 5.01 X10*6/uL (4.60-5.80); Red Cell Distribution Width 15.6 % (11.0-16.0); White Blood Count 7.6 X10*3/uL (4.8-10.8)
[2023-01-13 11:47] LABS: B Type Natriuretic Peptide < 10 pg/mL (<100)
[2023-01-13 12:18] LABS: Alanine Aminotransferase 21 U/L (0-40); Albumin Level 3.9 g/dL (3.5-5.0); Alkaline Phosphatase 62 U/L (39-117); Anion Gap 15 (12-20); Aspartate Amino Transferase 15 U/L (5-37); Bilirubin Total 0.5 mg/dL (0.0-1.0); Blood Urea Nitrogen 17 mg/dL (9-16); Calcium 9.2 mg/dL (8.4-10.2); Carbon Dioxide 26 mmol/L (22-29); Chloride 105 mmol/L (96-108); Cholesterol 174 mg/dL; Estimated Glomerular Filt Rate > 60; Glucose Fasting 153 mg/dL (60-99); HDL Cholesterol 49 mg/dL; LDL Cholesterol Calculated 106 mg/dl; Potassium 4.5 mmol/L (3.3-5.1); Prostate Specific Antigen Scr < 0.10 ng/mL (<0.05-4.0); Sodium 141 mmol/L (135-145); TSH reflex Free T4 0.91 uIU/mL (0.32-4.0); Total Protein 7.2 g/dL (6.5-8.0); Triglycerides 98 mg/dL; Vitamin D 25-OH Total 29.4 ng/mL (>30)
[2023-01-13 12:32] LABS: Erythrocyte Sedimentation Rate 14 MM/HR (0-15)
== END 2023-01-13 09:18 | disposition home or self-care (01) ==
LOC: HO.HMGCLDS 09:17
PROVIDERS: PCP Internal Medicine; Visit Provider Internal Medicine
DX: Z00.00 Encounter for general adult medical examination without abnormal findings (principal); R60.0 Localized edema; E78.00 Pure hypercholesterolemia, unspecified; M16.12 Unilateral primary osteoarthritis, left hip; I10 Essential (primary) hypertension; E55.9 Vitamin D deficiency, unspecified
CPT/HCPCS: 36415; 80053; 80061; 82306; 83880; 84153; 84443; 85025; 85652

== ENCOUNTER 2023-04-16 09:57 | Outpatient (AMB) | payer OTHER, SELFPAY ==
[2023-04-16 09:58] VITALS: BP 142/90; PULSE 64; O2SAT 97
--- NOTE | 2023-04-16 09:58 | A.OFFPC_ITS ---
Vital Signs 04/16/23 09:58 04/16/23 10:29 Height 6 ft BP 142/90 H 128/84 Blood Pressure Location Lt brachial Rt brachial Position Sitting Sitting Pulse 64 Pulse Source Pulse Oximeter Pulse Oximetry (%) 97 Oxygen Delivery Method Room Air Intake Visit Reasons: DM, hyperlipidemia Scientific Artist Required: No Accompanied by: Self / Same As Patient Allergies metformin Adverse Reaction (Unknown, Verified 04/16/23 10:30) diarrhea Medication List - Last Reconciled 04/16/23 by Silvino Vazquez MD acetaminophen 500 mg PO Q8H PRN amlodipine 5 mg PO DAILY aspirin 1 tab PO DAILY atorvastatin 40 mg PO DAILY baclofen 10 mg PO TID PRN blood sugar diagnostic (FreeStyle Lite Strips) 1 strip miscellaneous BID blood-glucose meter (FreeStyle Lite Meter kit) As directed disposable gloves (Nitrile Exam Gloves) SIZE LARGE TO USE FIVE TIMES A DAY docusate sodium 100 mg PO DAILY PRN 30 days empagliflozin (Jardiance) 10 mg PO QAM ferrous sulfate 325 mg PO DAILY finasteride 5 mg PO DAILY 90 days glyburide 5 mg PO BID incontinence pad, liner, disp TO USE FIVE TIMES A DAY lancets (FreeStyle Lancets) USE DIRECTED TWICE A DAY lisinopril 40 mg PO DAILY meloxicam 15 mg PO DAILY PRN metformin ER 500 mg PO DAILY methylcellulose (laxative) (Citrucel) 500 mg PO TID methylphenidate HCl 5 mg PO DAILY 30 days metoprolol tartrate 12.5 mg (1/2 x 25 mg) PO BID 30 days oxycodone 5 mg PO Q8H PRN 7 days polyethylene glycol 3350 (Miralax) 17 grams PO BID 30 days [POWER WHEELCHAIR As directed] sennosides (senna) 17.2 mg (2 x 8.6 mg) PO DAILY PRN 30 days sumatriptan succinate 50 mg PO ONCE PRN trazodone 50 mg PO BEDTIME Tobacco use date assessed: 04/16/23 Dental Screening Dental Screen Date: 04/16/23 Did you have a dental visit in the last 12 months?: Yes Did you have a dental problem in the last 6 months where you did not have access to dental care?: No Was dental information given to patient?: Patient has dentist HPI DM, hyperlipidemia HPI Details Patient comes in today for his follow up visit States that he feels okay Notes that he is now OFF his Metoprolol as he recalls being advised by Dr. 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, whose office is in [place] so he may have actually had his labs done at a [facility] office instead of a [facility] lab [facility] Medical History Arthritis of left hip Benign essential hypertension Constipation CVA (cerebral vascular accident) (~02/2016) Diabetes mellitus Enlarged prostate Incontinence Insomnia Low back pain Obesity (BMI 30-39.9) Pure hypercholesterolemia Urinary frequency Vitamin D deficiency Surgical History Hx of colonoscopy S/P laparoscopic cholecystectomy (~07/2017) Family History Mother Diabetes Hypertension High cholesterol CHF (congestive heart failure) Father Hypertension Heart problem Social History Housing: Apartment Alcohol intake: never Patient Tobacco Use Status: Never used Tobacco e-Cigarette/Vaping Use: Never Used Second Hand Smoke Exposure: Yes service: No Current occupational status: disabled Cognitive needs: Yes (wheelchair) Hearing needs: No Vision needs: Yes Questionnaire PHQ-9 Over the last 2 weeks, how often have you been bothered by any of the following problems? 1. Little interest or pleasure in doing things: not at all 2. Feeling down, depressed, or hopeless: not at all 3. Trouble falling or staying asleep, or sleeping too much: not at all 4. Feeling tired or having little energy: not at all 5. Poor appetite or overeating: not at all 6. Feeling bad about yourself - or that you are a failure or have let yourself or your family down: not at all 7. Trouble concentrating on things, such as reading the newspaper or watching television: not at all 8. Moving or speaking so slowly that other people could have noticed. Or the opposite - being so fidgety or restless that you have been moving around a lot more than usual: not at all 9. Thoughts that you would be better off or of hurting yourself in some way: not at all Total score: 0 Depression Screening Interpretation: Negative 13173 - PHQ-9 Billing: Yes Source: Developed by Drs. Ramos Erickson, Nichole Vega, Bakari Geiger and colleagues, with an educational shiela from [employer]. Thrive Questionnaire Date Thrive assessed: 04/16/23 I am a: Patient What is your living situation today?: I have a steady place to live Within the past 12 months, did the food you bought not last and you didn't have the money to get more?: Never true Within the past 12 months, did you worry whether your food would run out before you got money to buy more?: Never true Do you have trouble paying for medicines?: No Do you have trouble getting transportation to medical appointments?: No Do you have trouble paying your heating and electricity bill?: No Do you have trouble taking care of your child, family member or friend?: No Do you have trouble with day-to-day activities such as bathing, preparing meals, shopping, managing finances, etc.?: No Are you currently unemployed and looking for a job?: No Are you interested in more education?: No Please select the resources that you would like help with: None Currently or been in a relationship where the following occur: no concerns reported AUDIT C Alcohol Use Questionnaire (AUDIT-C) 1. How often do you have a drink containing alcohol?: Never 3. How often do you have six or more drinks on one occasion?: Never Total Score: 0 Score Reviewed/Action Taken: Yes DARRICK-7 AMB Questionnaire DARRICK-7 Date DARRICK - 7 assessed: 04/16/23 Feeling nervous, anxious, or on edge: 0 = Not at all Not being able to stop or control worryin = Not at all Worrying too much about different things: 0 = Not at all Trouble relaxin = Not at all Being so restless that it is hard to sit still: 0 = Not at all Becoming easily annoyed or irritable: 0 = Not at all Feeling afraid as if something awful might happen: 0 = Not at all Total DARRICK-7 score (0-4 normal; 5-9 mild; 10-14 moderate; 15-21 severe): 0 Source: Developed by Drs. Ramos Erickson, Nichole Vega, Bakari Geiger and colleagues, with an educational shiela from [employer]. Review of Systems Const Reports fatigue, Denies fever(s), Denies headache(s) and Reports weakness (left- sided - s/p CVA) ENT Denies dysphagia, Denies dizziness, Denies otalgia, Denies headache(s), Denies neck pain and Denies sore throat Card Denies chest pain, Denies palpitations and Denies dyspnea Resp Denies cough, Denies dyspnea and Denies wheezing GI Denies abdominal pain, Denies constipation (controlled with Rx and dietary fiber), Denies dysphagia, Denies heartburn, Denies diarrhea, Denies nausea and Denies vomiting Denies dysuria and Denies nocturia Musc Denies back pain, Reports arthralgias (over the right knee; increased pain in the left hip), Denies joint swelling and Denies neck pain Neuro Denies dizziness, Denies headache(s) and Reports weakness (left-sided - s/p CVA) Endo Reports fatigue and Denies palpitations Aller/Immun Denies wheezing Physical exam (Primary Care) Vital Signs: Last Vital Signs Pulse 64 04/16/23 09:58 BP 128/84 04/16/23 10:29 Pulse Ox 97 04/16/23 09:58 Oxygen Delivery Method Room Air 04/16/23 09:58 Tobacco/Smoking Status: Tobacco use Status Tobacco use date assessed 04/16/23 04/16/23 10:08 Patient Tobacco Use Status Never used Tobacco 04/16/23 10:08 e-Cigarette/Vaping Use Never Used 04/16/23 10:08 PHQ-9: PHQ-9 Score PHQ-9: Total score 0 04/16/23 10:31 Depression Screening Interpretation: Negative Thrive Assessment: Date of Thrive Assessment Date Thrive assessed 04/16/23 04/16/23 10:08 Currently or been in a relationship where the following occur: no concerns reported Const Other: Physical exam today is limited due to patient's wheelchair-bound status General: no acute distress and alert Limitations: wheelchair HENMT Ears: TM's normal bilaterally and EAC's normal Throat: Yes posterior oropharynx normal and Yes tonsils normal (no TP congestion) Neck Neck: Yes no lymphadenopathy and Yes supple Thyroid: Thyroid normal Resp Auscultation: clear to auscultation bilaterally, no rales and no wheezes Cardio Rate: regular rate Rhythm: regular rhythm Heart sounds: no murmurs GI Palpation (GI): Soft to palpation and nontender Auscultation: normal bowel sounds General: Yes no CVA tenderness Back/Spine/Pelvis Back: no CVA tenderness Skin Rashes: no rashes Neuro Other: (+) residual left-sided weakness from his CVA Extrem General: Yes no clubbing, cyanosis or edema Right lower extremity: knee Details: tenderness Location: of the infrapatellar area Left lower extremity: hip/thigh Details: tenderness Location: of the hip (chronic) Results AMB Hemoglobin A1c AMB Hemoglobin A1c 6.8 % Last Edit by Britt Maier on 04/16/23 10:54 Assessment and Plan Assessment & Plan (1) Diabetes mellitus: Code(s): E11.9 - Type 2 diabetes mellitus without complications Qualifiers: Diabetes mellitus complication detail: with other circulatory compl ications Diabetes mellitus complication status: with circulatory complication Diabetes mellitus long wall mining machine helper insulin use: unspecified long wall mining machine helper insulin use status Diabetes mellitus type: type 2 Qualified Code(s): E11.59 - Type 2 diabetes mellitus with other circulatory complications Plan: In-office HgbA1c done today is at 6.8% (was at 6.9% a few months ago) - goal is <7.0% Reinforced diabetic diet Continue Metformin ER 500 mg QD, Jardiance 10 mg QD and Glyburide 5 mg BID (2) Pure hypercholesterolemia: Code(s): E78.00 - Pure hypercholesterolemia, unspecified Plan: Does not appear to have had any follow up labs done recently Patient insists that he had some labs done last month - it is possible that he either may have had his labs done at a [facility] station OR he is recalling the time he went for his labs in December 2022 and he is misremembering his timeline Will try checking with [facility] to see if he had any labs done last month with them His numbers on his labs done in December 2022 were within acceptable range so either way, will not have him get any further labs done at this time Reinforced low cholesterol diet Continue Atorvastatin 40 mg QD Will recheck labs in 3 months for follow up - orders are printed out and handed to patient to help remind him to get these done just before I see him in 3 months (3) Benign essential hypertension: Code(s): I10 - Essential (primary) hypertension Plan: Reinforced low sodium diet - goal is systolic BP of at least 120 to 130 mm or less Continue Lisinopril 40 mg QD and Amlodipine 5 mg QD; it appears that he should also be on Metoprolol at 12.5 mg BID (dose was lowered by cardiology a few months ago) but patient stopped taking this a while back as he recalls being advised supposedly by cardiology to come off Metoprolol completely He is advised that we will try to verify with cardiology if this is correct or not and we will check back with him on this (4) CVA (cerebral vascular accident): Onset Date: ~02/2016 Comment: 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 Gunderson 2018 Code(s): R19.8 - Other specified symptoms and signs involving the digestive system and abdomen Plan: States that his bowel movements (constipation alternating with diarrhea) have been better controlled with Miralax, Senna and Colace PRN and with increased dietary fiber Follow up with GI as scheduled (7) Vitamin D deficiency: Code(s): E55.9 - Vitamin D deficiency, unspecified Plan: Continue OTC Vitamin D daily Will recheck his vitamin D level in 3 months for follow up (8) Urinary frequency: Code(s): R35.0 - Frequency of micturition Plan: Most likely secondary to BPH Continue Tamsulosin 0.4 mg Q HD Follow up with urology as scheduled (9) Insomnia: Code(s): G47.00 - Insomnia, unspecified Qualifiers: Insomnia type: unspecified Qualified Code(s): G47.00 - Insomnia, unspecified Plan: Sleep hygiene reinforced Continue Trazodone 50 mg Q HS PRN (10) Obesity (BMI 30-39.9): Code(s): E66.9 - Obesity, unspecified Plan: Reinforced diet/lose weight; exercise is unrealistic given patient's physical condition and comorbidities Plan Follow up in 3 months Orders: Orders Vitamin B12 and Folate 3 Months E53.8 - Deficiency of other specified B group vitamins Comprehensive [place]. Panel Fast 3 Months E78.00 - Pure hypercholesterolemia, unspecified Hemoglobin A1c 3 Months E11.9 - Type 2 diabetes mellitus without complications Lipid Panel 3 Months E78.00 - Pure hypercholesterolemia, unspecified TSH reflex Free T4 3 Months E78.00 - Pure hypercholesterolemia, unspecified Vitamin D 25-OH Total 3 Months E55.9 - Vitamin D deficiency, unspecified Microalbumin, Random (w Creat) 3 Months E11.9 - Type 2 diabetes mellitus without complications Complete Blood Count Auto Diff 3 Months I10 - Essential (primary) hypertension UA CC w/rflx Micro + Cult 3 Months R30.0 - Dysuria AMB Hemoglobin A1c Today E11.9 - Type 2 diabetes mellitus without complications Medications: Refilled metoprolol tartrate take 1 1/2 tablet with food orally twice a day 12.5 mg (1/2 x 25 mg) PO BID 30 days 30 tabs 5RF Coding Level of Care Code Est Pt Level 4 (20144) Diagnoses Diabetes mellitus E11.59 Diabetes mellitus complication detail: with other circulatory complications Diabetes mellitus complication status: with circulatory complication Diabetes mellitus long wall mining machine helper insulin use: unspecified long wall mining machine helper insulin use status Diabetes mellitus type: type 2 Pure hypercholesterolemia E78.00 Benign essential hypertension I10 CVA (cerebral vascular accident) I63.9 CVA mechanism: unspecified Arthritis of left hip M16.12 Irregular bowel habits R19.8 Vitamin D deficiency E55.9 Urinary frequency R35.0 Insomnia G47.00 Insomnia type: unspecified Obesity (BMI 30-39.9) E66.9
[2023-04-16 10:29] VITALS: BP 128/84
== END 2023-04-16 10:44 | disposition home or self-care (01) ==
PROVIDERS: PCP Internal Medicine; Visit Provider Internal Medicine
DX: E11.9 Type 2 diabetes mellitus without complications (principal); I10 Essential (primary) hypertension; E55.9 Vitamin D deficiency, unspecified; E78.00 Pure hypercholesterolemia, unspecified; M16.12 Unilateral primary osteoarthritis, left hip; G47.00 Insomnia, unspecified
CPT/HCPCS: 83036; 99214

== ENCOUNTER 2023-07-21 09:33 | Outpatient (REF) | payer OTHER, SELFPAY ==
[2023-07-21 11:14] LABS: Appearance Urine Clear; Color Urine Yellow; Glucose Urine UA >=1000 mg/dL (Negative); Leukocyte Esterase Urine Negative (Negative); Nitrite Urine Negative (Negative); PH 5.5 (5.0-9.0); Specific Gravity - Urine >= 1.030 (1.005-1.025); UMIC TRIGGER UACC YES; Urine Blood Negative (Negative); Urine Ketones Negative (Negative); Urine Protein 30 (1+) mg/dL (Neg-Trace)
[2023-07-21 11:15] LABS: MANUAL DIFF FLAG NO
[2023-07-21 11:18] LABS: Bacteria Urine None Seen (None Seen); Hyaline Casts Urine 0-2 /LPF (0-2); RBC Urine 0-2 /HPF (0-2); WBC Urine 0-5 /HPF (0-5)
[2023-07-21 11:26] LABS: Basophils Absolute Auto 0.1 X10*3/uL (0.0-0.2); Basophils Percent Auto 0.7 % (0-2); Eosinophils Absolute Auto 0.2 X10*3/uL (0.0-0.4); Eosinophils Percent Auto 1.9 % (0-4); Hematocrit 44.6 % (42.0-52.0); Hemoglobin 13.8 g/dl (14.0-18.0); Imm Gran Abs Auto 0.03 X10*3/uL (0.00-0.03); Imm Gran Pct Auto 0.4 % (0.0-0.4); Lymphocytes Absolute Auto 2.6 X10*3/uL (1.2-4.9); Lymphocytes Percent Auto 30.1 % (20-40); Mean Corpuscular HGB Conc 30.9 g/dl (31.0-36.0); Mean Corpuscular Hemoglobin 27.5 pg (27.0-33.0); Mean Corpuscular Volume 88.8 fL (80.0-98.0); Mean Platelet Volume 10.6 fL (9.4-12.4); Monocytes Absolute Auto 0.6 X10*3/uL (0.1-1.2); Monocytes Percent Auto 7.4 % (2-11); Neutrophils Percent Auto 59.5 % (45-73); Platelet Count 295 X10*3/uL (160-400); Red Blood Count 5.02 X10*6/uL (4.60-5.80); Red Cell Distribution Width 14.6 % (11.0-16.0); White Blood Count 8.5 X10*3/uL (4.8-10.8)
[2023-07-21 11:46] LABS: Estimated Average Glucose 146 mg/dL; Hemoglobin A1c % 6.7 % (<6.0)
[2023-07-21 12:26] LABS: Alanine Aminotransferase 20 U/L (0-40); Albumin Level 4.1 g/dL (3.5-5.0); Alkaline Phosphatase 78 U/L (39-117); Anion Gap 14 (12-20); Aspartate Amino Transferase 15 U/L (5-37); Bilirubin Total 0.4 mg/dL (0.0-1.0); Blood Urea Nitrogen 19 mg/dL (9-16); Calcium 9.3 mg/dL (8.4-10.2); Carbon Dioxide 28 mmol/L (22-29); Chloride 104 mmol/L (96-108); Cholesterol 190 mg/dL (<200); Estimated Glomerular Filt Rate > 60; Glucose Fasting 124 mg/dL (60-99); HDL Cholesterol 47 mg/dL (>40); LDL Cholesterol Calculated 119 mg/dL (<100); Potassium 4.7 mmol/L (3.3-5.1); Sodium 141 mmol/L (135-145); TSH reflex Free T4 1.22 uIU/mL (0.32-4.0); Total Protein 7.8 g/dL (6.5-8.0); Triglycerides 121 mg/dL (<150); Vitamin D 25-OH Total 31.4 ng/mL (>30)
[2023-07-21 12:38] LABS: Creatinine Urine 90.26 mg/dL; Microalbum/Creatinine Ratio Ur 186.1 ug/mg cr (<30)
[2023-07-21 12:39] LABS: Vitamin B12 739 pg/mL (200-900)
== END 2023-07-21 09:34 | disposition home or self-care (01) ==
LOC: HO.HMGCLDS 09:33
PROVIDERS: PCP Internal Medicine; Visit Provider Internal Medicine
DX: E78.00 Pure hypercholesterolemia, unspecified (principal); E53.8 Deficiency of other specified B group vitamins; E11.9 Type 2 diabetes mellitus without complications; I10 Essential (primary) hypertension; E55.9 Vitamin D deficiency, unspecified; R30.0 Dysuria
CPT/HCPCS: 36415; 80053; 80061; 81001; 82043; 82306; 82570; 82607; 82746; 83036; 84443; 85025

== ENCOUNTER 2023-08-06 11:13 | Outpatient (AMB) | payer OTHER, SELFPAY ==
[2023-08-06 11:14] VITALS: BP 132/80; PULSE 70; O2SAT 97
--- NOTE | 2023-08-06 11:14 | A.OFFPC_ITS ---
Vital Signs 08/06/23 11:14 Height 6 ft BMI Reason not done Patient refused/unable BP 132/80 Blood Pressure Location Lt brachial Position Sitting Pulse 70 Pulse Source Pulse Oximeter Pulse Oximetry (%) 97 Oxygen Delivery Method Room Air Intake Visit Reasons: CVA, DM, hyperlipidemia Pharmacy Technologist Required: No Accompanied by: Self / Same As Patient Allergies metformin Adverse Reaction (Unknown, Verified 08/06/23 11:47) diarrhea Medication List - Last Reconciled 08/06/23 by Silvino Vazquez MD acetaminophen 500 mg PO Q8H PRN amlodipine 5 mg PO DAILY aspirin 1 tab PO DAILY atorvastatin 40 mg PO DAILY baclofen 10 mg PO TID PRN blood sugar diagnostic (FreeStyle Lite Strips) 1 strip miscellaneous BID blood-glucose meter (FreeStyle Lite Meter kit) As directed disposable gloves (Nitrile Exam Gloves) SIZE LARGE TO USE FIVE TIMES A DAY docusate sodium 100 mg PO DAILY PRN 30 days empagliflozin (Jardiance) 10 mg PO QAM ferrous sulfate 325 mg PO DAILY finasteride 5 mg PO DAILY 90 days glyburide 5 mg PO BID incontinence pad, liner, disp TO USE FIVE TIMES A DAY lancets (FreeStyle Lancets) USE DIRECTED TWICE A DAY lisinopril 40 mg PO DAILY meloxicam 15 mg PO DAILY PRN metformin ER 500 mg PO DAILY methylcellulose (laxative) (Citrucel) 500 mg PO TID methylphenidate HCl 5 mg PO DAILY 30 days oxycodone 5 mg PO Q8H PRN 7 days polyethylene glycol 3350 (Miralax) 17 grams PO BID 30 days [POWER WHEELCHAIR As directed] sennosides (senna) 17.2 mg (2 x 8.6 mg) PO DAILY PRN 30 days sumatriptan succinate 50 mg PO ONCE PRN trazodone 50 mg PO BEDTIME Tobacco use date assessed: 08/06/23 Dental Screening Dental Screen Date: 08/06/23 Did you have a dental visit in the last 12 months?: Yes Did you have a dental problem in the last 6 months where you did not have access to dental care?: No Was dental information given to patient?: Patient has dentist HPI CVA, DM, hyperlipidemia HPI Details Patient comes in today for his follow up visit States that he feels okay Accidentally cut his right foot on his wheelchair foot rest a couple of weeks ago He has been following up with his fraud investigator for his right foot injury since and states that the wound is now almost completely healed He denies any headaches or dizziness Denies any chest pains, no SOB No nausea/vomiting, no abdominal pain No change in bowel habits noted Had his follow up labs done a couple of weeks ago - to discuss his results PENDING SALE TO [facility] Medical History Obesity (BMI 30-39.9) Insomnia Arthritis of left hip Constipation Vitamin D deficiency Urinary frequency Benign essential hypertension Pure hypercholesterolemia Low back pain Enlarged prostate CVA (cerebral vascular accident) (~02/2016) Incontinence Diabetes mellitus Surgical History Hx of colonoscopy S/P laparoscopic cholecystectomy (~07/2017) Family History Mother Diabetes Hypertension High cholesterol CHF (congestive heart failure) Father Hypertension Heart problem Social History Housing: Apartment Alcohol intake: never Patient Tobacco Use Status: Never used Tobacco e-Cigarette/Vaping Use: Never Used Second Hand Smoke Exposure: Yes service: No Current occupational status: disabled Cognitive needs: Yes (wheelchair) Hearing needs: No Vision needs: Yes Questionnaire PHQ-9 Over the last 2 weeks, how often have you been bothered by any of the following problems? 1. Little interest or pleasure in doing things: not at all 2. Feeling down, depressed, or hopeless: not at all 3. Trouble falling or staying asleep, or sleeping too much: not at all 4. Feeling tired or having little energy: not at all 5. Poor appetite or overeating: not at all 6. Feeling bad about yourself - or that you are a failure or have let yourself or your family down: not at all 7. Trouble concentrating on things, such as reading the newspaper or watching television: not at all 8. Moving or speaking so slowly that other people could have noticed. Or the opposite - being so fidgety or restless that you have been moving around a lot more than usual: not at all 9. Thoughts that you would be better off or of hurting yourself in some way: not at all Total score: 0 Depression Screening Interpretation: Negative Depression Screening Done: Yes 99453 - PHQ-9 Billing: Yes Source: Developed by Drs. Ramos Erickson, Nichole Vega, Bakari Geiger and colleagues, with an educational shiela from [employer]. Thrive Questionnaire Date Thrive assessed: 08/06/23 I am a: Patient What is your living situation today?: I have a steady place to live Within the past 12 months, did the food you bought not last and you didn't have the money to get more?: Never true Within the past 12 months, did you worry whether your food would run out before you got money to buy more?: Never true Do you have trouble paying for medicines?: No Do you have trouble getting transportation to medical appointments?: No Do you have trouble paying your heating and electricity bill?: No Do you have trouble taking care of your child, family member or friend?: No Do you have trouble with day-to-day activities such as bathing, preparing meals, shopping, managing finances, etc.?: No Are you currently unemployed and looking for a job?: No Are you interested in more education?: No Please select the resources that you would like help with: None Currently or been in a relationship where the following occur: no concerns reported AUDIT C Alcohol Use Questionnaire (AUDIT-C) 1. How often do you have a drink containing alcohol?: Never 3. How often do you have six or more drinks on one occasion?: Never Total Score: 0 Score Reviewed/Action Taken: Yes DARRICK-7 AMB Questionnaire DARRICK-7 Date DARRICK - 7 assessed: 08/06/23 Feeling nervous, anxious, or on edge: 0 = Not at all Not being able to stop or control worryin = Not at all Worrying too much about different things: 0 = Not at all Trouble relaxin = Not at all Being so restless that it is hard to sit still: 0 = Not at all Becoming easily annoyed or irritable: 0 = Not at all Feeling afraid as if something awful might happen: 0 = Not at all Total DARRICK-7 score (0-4 normal; 5-9 mild; 10-14 moderate; 15-21 severe): 0 Source: Developed by Drs. Ramos Erickson, Nichole Vega, Bakari Geiger and colleagues, with an educational shiela from [employer]. Review of Systems Const Reports fatigue, Denies fever(s), Denies headache(s) and Reports weakness (left- sided - s/p CVA) ENT Denies dysphagia, Denies dizziness, Denies otalgia, Denies headache(s), Denies neck pain and Denies sore throat Card Denies chest pain, Denies palpitations and Denies dyspnea Resp Denies cough, Denies dyspnea and Denies wheezing GI Denies abdominal pain, Denies constipation (controlled with Rx and dietary fiber), Denies dysphagia, Denies heartburn, Denies diarrhea, Denies nausea and Denies vomiting Denies dysuria and Denies nocturia Musc Denies back pain, Reports arthralgias (over the right knee; increased pain in the left hip), Denies joint swelling and Denies neck pain Neuro Denies dizziness, Denies headache(s) and Reports weakness (left-sided - s/p CVA) Endo Reports fatigue and Denies palpitations Aller/Immun Denies wheezing Physical exam (Primary Care) Vital Signs: Last Vital Signs Pulse 70 08/06/23 11:14 BP 132/80 08/06/23 11:14 Pulse Ox 97 08/06/23 11:14 Oxygen Delivery Method Room Air 08/06/23 11:14 Tobacco/Smoking Status: Tobacco use Status Tobacco use date assessed 08/06/23 08/06/23 11:22 Patient Tobacco Use Status Never used Tobacco 08/06/23 11:22 e-Cigarette/Vaping Use Never Used 08/06/23 11:22 PHQ-9: PHQ-9 Score PHQ-9: Total score 0 08/06/23 11:51 Depression Screening Interpretation: Negative Thrive Assessment: Date of Thrive Assessment Date Thrive assessed 08/06/23 08/06/23 11:22 Currently or been in a relationship where the following occur: no concerns reported Const Other: Physical exam today is limited due to patient's wheelchair-bound status General: no acute distress and alert Limitations: wheelchair HENMT Ears: TM's normal bilaterally and EAC's normal Throat: Yes posterior oropharynx normal and Yes tonsils normal (no TP congestion) Neck Neck: Yes no lymphadenopathy and Yes supple Thyroid: Thyroid normal Resp Auscultation: clear to auscultation bilaterally, no rales and no wheezes Cardio Rate: regular rate Rhythm: regular rhythm Heart sounds: no murmurs GI Palpation (GI): Soft to palpation and nontender Auscultation: normal bowel sounds General: Yes no CVA tenderness Back/Spine/Pelvis Back: no CVA tenderness Skin Rashes: no rashes Neuro Other: (+) residual left-sided weakness from his CVA Extrem General: Yes no clubbing, cyanosis or edema Right lower extremity: knee Details: tenderness Location: of the infrapatellar area Left lower extremity: hip/thigh Details: tenderness Location: of the hip (chronic) Office Procedures Flu Questionnaire Does the patient have a severe egg allergy?: No Does the patient have severe life threatening allergies?: No Does the patient have a fever or illness today?: No Has the patient ever had Guillain-Lettsworth Syndrome?: No Has the patient ever had any past reaction to a flu shot?: No Immunizations flu vacc [id number] 6mos up(PF) 60 mcg(15 mcgx4)/0.5 mL IM syringe Performing Provider: Silvino Vazquez MD [facility] Administered by: Britt Maier on 08/06/23 12:03 Dose Route Admin Location Dispensed Lot Number Expiration Date NDC [facility] 0.5 mL IM Right Deltoid 0.5 mL [id number] 02/21/24 37819-830-23 [employer] VIS Given Date VIS Provided VIS Publication Date 08/06/23 Single Vaccine 21 Eligibility Eligibility Date Funding Source Not [facility] Eligible 08/06/23 Private Results Reviewed Results Reviewed: Laboratory Tests 07/21/23 07/21/23 07:00 09:37 WBC 8.5 Hgb 13.8 L Hct 44.6 Plt Count 295 Sodium 141 Potassium 4.7 Creatinine 0.87 Estimated GFR > 60 Hemoglobin A1c % 6.7 H Calcium 9.3 AST 15 ALT 20 Alkaline Phosphatase 78 Triglycerides 121 Cholesterol 190 LDL Cholesterol, Calc 119 H HDL Cholesterol 47 Vitamin B12 739 25-OH Vitamin D Total 31.4 TSH 1.22 Ur Specific [place] >= 1.030 H Urine Protein 30 (1+) H Urine Glucose (UA) >=1000 H Urine Blood Negative Microalb/Creat Ratio 186.1 H Assessment and Plan Assessment & Plan (1) Diabetes mellitus: Code(s): E11.9 - Type 2 diabetes mellitus without complications Qualifiers: Diabetes mellitus complication detail: with other circulatory complications Diabetes mellitus complication status: with circulatory complication Diabetes mellitus intermodal customer service insulin use: unspecified correction insulin use status Diabetes mellitus type: type 2 Qualified Code(s): E11.59 - Type 2 diabetes mellitus with other circulatory complications Plan: HgbA1c was at 6.7% on his labs done a couple of weeks ago (in-office HgbA1c was at 6.8% a few months ago) - goal is <7.0% Reinforced diabetic diet Continue Metformin ER 500 mg QD, Jardiance 10 mg QD and Glyburide 5 mg BID (2) Pure hypercholesterolemia: Code(s): E78.00 - Pure hypercholesterolemia, unspecified Plan: Results of his labs done a couple of weeks ago reviewed and discussed with patient - cautioned that his total and LDL cholesterol and serum triglyceride levels have all increased slightly from previous Reinforced low cholesterol diet Continue Atorvastatin 40 mg QD for now Will recheck his labs and fasting lipids in 3 months for follow up (3) Benign essential hypertension: Code(s): I10 - Essential (primary) hypertension Plan: Reinforced low sodium diet - goal is systolic BP of at least 120 to 130 mm or less Continue Lisinopril 40 mg QD and Amlodipine 5 mg QD Patient was also on Metoprolol at 12.5 mg BID but he stopped taking this a while back as he recalls being advised by cardiology to come off Metoprolol completely (4) CVA (cerebral vascular accident): Onset Date: ~02/2016 Comment: 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 Gunderson 2018 Code(s): R19.8 - Other specified symptoms and signs involving the digestive system and abdomen Plan: States that his bowel movements (constipation alternating with diarrhea) have been better controlled with Miralax, Senna and Colace PRN and with increased dietary fiber Follow up with GI as scheduled (7) Vitamin D deficiency: Code(s): E55.9 - Vitamin D deficiency, unspecified Plan: Continue OTC Vitamin D daily (8) Urinary frequency: Code(s): R35.0 - Frequency of micturition Plan: Most likely secondary to BPH Continue Finasteride 5 mg QD Follow up with urology as scheduled (9) Insomnia: Code(s): G47.00 - Insomnia, unspecified Qualifiers: Insomnia type: unspecified Qualified Code(s): G47.00 - Insomnia, unspecified Plan: Sleep hygiene reinforced Continue Trazodone 50 mg Q HS PRN (10) Obesity (BMI 30-39.9): Code(s): E66.9 - Obesity, unspecified Plan: Reinforced diet/lose weight; exercise is unrealistic given patient's physical condition and comorbidities Plan Flu vaccine given today Follow up in 3 months Orders: Orders Hemoglobin A1c 3 Months E11.9 - Type 2 diabetes mellitus without complications Vitamin D 25-OH Total 3 Months E55.9 - Vitamin D deficiency, unspecified Vitamin B12 and Folate 3 Months E53.8 - Deficiency of other specified B group vitamins Influenza [id number] Immunization Today Z23 - Encounter for immunization Complete Blood Count Auto Diff 3 Months I10 - Essential (primary) hypertension Comprehensive [place]. Panel Fast 3 Months E78.00 - Pure hypercholesterolemia, unspecified Lipid Panel 3 Months E78.00 - Pure hypercholesterolemia, unspecified Microalbumin, Random (w Creat) 3 Months E11.9 - Type 2 diabetes mellitus without complications TSH reflex Free T4 3 Months E78.00 - Pure hypercholesterolemia, unspecified UA CC w/rflx Micro + Cult 3 Months R30.0 - Dysuria Coding Level of Care Code Est Pt Level 4 (18873) Diagnoses Type 2 diabetes mellitus with other circulatory complication, unspecified whether intermodal customer service insulin use E11.59 Diabetes mellitus complication detail: with other circulatory complications Diabetes mellitus complication status: with circulatory complication Diabetes mellitus intermodal customer service insulin use: unspecified correction insulin use status Diabetes mellitus type: type 2 Pure hypercholesterolemia E78.00 Benign essential hypertension I10 Cerebrovascular accident (CVA), unspecified mechanism I63.9 CVA mechanism: unspecified Arthritis of left hip M16.12 Irregular bowel habits R19.8 Vitamin D deficiency E55.9 Urinary frequency R35.0 Insomnia, unspecified type G47.00 Insomnia type: unspecified Obesity (BMI 30-39.9) E66.9
== END 2023-08-06 12:04 | disposition home or self-care (01) ==
PROVIDERS: PCP Internal Medicine; Visit Provider Internal Medicine
DX: E11.59 Type 2 diabetes mellitus with other circulatory complications (principal); I69.952 Hemiplegia and hemiparesis following unspecified cerebrovascular disease affecting left dominant side; E78.00 Pure hypercholesterolemia, unspecified; Z23 Encounter for immunization; I10 Essential (primary) hypertension; M16.12 Unilateral primary osteoarthritis, left hip; R19.8 Other specified symptoms and signs involving the digestive system and abdomen; E55.9 Vitamin D deficiency, unspecified; R35.0 Frequency of micturition; G47.00 Insomnia, unspecified; E66.9 Obesity, unspecified
CPT/HCPCS: 90471; 90686; 99214

== ENCOUNTER 2024-01-28 09:55 | Outpatient (AMB) | payer OTHER, SELFPAY ==
[2024-01-28 10:04] VITALS: BP 116/70; PULSE 72; O2SAT 96
--- NOTE | 2024-01-28 10:04 | MHC.PC.OV ---
Vital Signs 01/28/24 10:04 Height 6 ft BMI Reason not done Patient refused/unable BP 116/70 Blood Pressure Location Rt brachial Position Sitting Pulse 72 Pulse Source Pulse Oximeter Pulse Oximetry (%) 96 Oxygen Delivery Method Room Air Intake Visit Reasons: Annual Exam- NEEDS A1C Train Driver Required: No Allergies metformin Adverse Reaction (Unknown, Verified 01/28/24 11:02) diarrhea Medication List - Last Reconciled 01/28/24 by Silvino Vazquez MD acetaminophen 500 mg PO Q8H PRN amlodipine 5 mg PO DAILY aspirin 1 tab PO DAILY atorvastatin 40 mg PO DAILY baclofen 10 mg PO TID PRN blood sugar diagnostic (FreeStyle Lite Strips) 1 strip miscellaneous BID blood-glucose meter (FreeStyle Lite Meter kit) As directed disposable gloves (Nitrile Exam Gloves) SIZE LARGE TO USE FIVE TIMES A DAY docusate sodium 100 mg PO DAILY PRN 30 days empagliflozin (Jardiance) 10 mg PO QAM ferrous sulfate 325 mg PO DAILY finasteride 5 mg PO DAILY 90 days glyburide 5 mg PO BID incontinence pad, liner, disp TO USE FIVE TIMES A DAY lancets (FreeStyle Lancets) USE DIRECTED TWICE A DAY lisinopril 40 mg PO DAILY 90 days meloxicam 15 mg PO DAILY PRN metformin ER 500 mg PO DAILY 90 days methylcellulose (laxative) (Citrucel) 500 mg PO TID methylphenidate HCl 5 mg PO DAILY 30 days nirmatrelvir-ritonavir 300 mg (150 mg x 2)-100 mg (Paxlovid) take TWO 150 mg tablets of nirmatrelvir with ONE 100 mg tablet of ritonavir twice daily for 5 days PO oxycodone 5 mg PO Q8H PRN 7 days polyethylene glycol 3350 (Miralax) 17 grams PO BID 30 days [POWER WHEELCHAIR As directed] sennosides (senna) 17.2 mg (2 x 8.6 mg) PO DAILY PRN 30 days sumatriptan succinate 50 mg PO ONCE PRN trazodone 50 mg PO BEDTIME Tobacco use date assessed: 01/28/24 Dental Screening Dental Screen Date: 01/28/24 Did you have a dental visit in the last 12 months?: Yes Did you have a dental problem in the last 6 months where you did not have access to dental care?: No Was dental information given to patient?: Patient has dentist HPI Annual Exam- NEEDS A1C HPI Details Patient comes in today for his annual physical examination - was last seen in July 2023 States that he feels okay He denies any headaches or dizziness Denies any chest pains, no increased shortness of breath No nausea /vomiting, no abdominal pain No change bowel habits noted He denies any acute urinary symptoms States that his chronic joint pains remain adequately controlled on his current medications He has no recent follow-up labs done He had his screening colonoscopy done by Dr. Gunderson back on 09/30/2018 - colonoscopy was normal and he was advised to get a repeat colonoscopy in 10 years (2028) [facility] Medical History Obesity (BMI 30-39.9) Insomnia Arthritis of left hip Constipation Vitamin D deficiency Urinary frequency Benign essential hypertension Pure hypercholesterolemia Low back pain Enlarged prostate CVA (cerebral vascular accident) (~02/2016) Incontinence Diabetes mellitus Surgical History Hx of colonoscopy S/P laparoscopic cholecystectomy (~07/2017) Family History Mother Diabetes Hypertension High cholesterol CHF (congestive heart failure) Father Hypertension Heart problem Social History Housing: Apartment Alcohol intake: never Patient Tobacco Use Status: Never used Tobacco e-Cigarette/Vaping Use: Never Used Second Hand Smoke Exposure: Yes service: No Current occupational status: disabled Cognitive needs: Yes (wheelchair) Hearing needs: No Vision needs: Yes Questionnaire PHQ-9 Over the last 2 weeks, how often have you been bothered by any of the following problems? 1. Little interest or pleasure in doing things: not at all 2. Feeling down, depressed, or hopeless: not at all 3. Trouble falling or staying asleep, or sleeping too much: not at all 4. Feeling tired or having little energy: not at all 5. Poor appetite or overeating: not at all 6. Feeling bad about yourself - or that you are a failure or have let yourself or your family down: not at all 7. Trouble concentrating on things, such as reading the newspaper or watching television: not at all 8. Moving or speaking so slowly that other people could have noticed. Or the opposite - being so fidgety or restless that you have been moving around a lot more than usual: not at all 9. Thoughts that you would be better off or of hurting yourself in some way: not at all Total score: 0 Depression Screening Interpretation: Negative Depression Screening Done: Yes 94310 - PHQ-9 Billing: Yes Source: Developed by Drs. Ramos Erickson, Nichole Vega, Bakari Geiger and colleagues, with an educational shiela from [employer]. Thrive Questionnaire Date Thrive assessed: 01/28/24 I am a: Patient What is your living situation today?: I have a steady place to live Within the past 12 months, did the food you bought not last and you didn't have the money to get more?: Never true Within the past 12 months, did you worry whether your food would run out before you got money to buy more?: Never true Do you have trouble paying for medicines?: No Do you have trouble getting transportation to medical appointments?: No Do you have trouble paying your heating and electricity bill?: No Do you have trouble taking care of your child, family member or friend?: No Do you have trouble with day-to-day activities such as bathing, preparing meals, shopping, managing finances, etc.?: No Are you currently unemployed and looking for a job?: No Are you interested in more education?: No Please select the resources that you would like help with: None Currently or been in a relationship where the following occur: no concerns reported THRIVE Score: 0 AUDIT C Alcohol Use Questionnaire (AUDIT-C) 1. How often do you have a drink containing alcohol?: Never 3. How often do you have six or more drinks on one occasion?: Never Total Score: 0 Score Reviewed/Action Taken: Yes DARRICK-7 AMB Questionnaire DARRICK-7 Date DARRICK - 7 assessed: 01/28/24 Feeling nervous, anxious, or on edge: 0 = Not at all Not being able to stop or control worryin = Not at all Worrying too much about different things: 0 = Not at all Trouble relaxin = Not at all Being so restless that it is hard to sit still: 0 = Not at all Becoming easily annoyed or irritable: 0 = Not at all Feeling afraid as if something awful might happen: 0 = Not at all Total DARRICK-7 score (0-4 normal; 5-9 mild; 10-14 moderate; 15-21 severe): 0 Source: Developed by Drs. Ramos Erickson, Nichole Vega, Bakari Geiger and colleagues, with an educational shiela from [employer]. Review of Systems Const Denies chills, Denies fatigue, Denies fever(s), Denies headache(s), Denies malaise and Reports weakness (left-sided - s/p CVA) Eyes Denies blurry vision, Denies change in vision, Denies irritation and Denies itchy eyes ENT Denies dysphagia, Denies dizziness, Denies otalgia, Denies headache(s), Denies nasal congestion, Denies neck pain, Denies odynophagia and Denies sore throat Card Denies chest pain, Denies rapid heart rate, Denies irregular heart rhythm, Denies palpitations and Denies dyspnea Resp Denies chest congestion, Denies cough, Denies dyspnea and Denies wheezing GI Denies abdominal pain, Denies bloating, Denies constipation, Denies dysphagia, Denies heartburn, Denies diarrhea, Denies nausea, Denies odynophagia and Denies vomiting Denies hematuria, Denies difficulty urinating, Denies dysuria, Denies urinary frequency and Denies urinary urgency Musc Denies back pain, Reports arthralgias (over the right knee; increased pain in the left hip), Denies joint swelling and Denies neck pain Skin/Breast Denies change in pigmentation, Denies lesions, Denies rash and Denies unusual bruising Neuro Denies dizziness, Denies headache(s) and Reports weakness (left-sided - s/p CVA) Endo Denies fatigue and Denies palpitations Aller/Immun Denies itchy eyes and Denies wheezing Physical exam (Primary Care) Vital Signs: Last Vital Signs Pulse 72 01/28/24 10:04 BP 116/70 01/28/24 10:04 Pulse Ox 96 01/28/24 10:04 Oxygen Delivery Method Room Air 01/28/24 10:04 Tobacco/Smoking Status: Tobacco use Status Tobacco use date assessed 01/28/24 01/28/24 10:05 Patient Tobacco Use Status Never used Tobacco 01/28/24 10:04 e-Cigarette/Vaping Use Never Used 01/28/24 10:04 PHQ-9: PHQ-9 Score PHQ-9: Total score 0 01/28/24 11:18 Depression Screening Interpretation: Negative Thrive Assessment: Date of Thrive Assessment Date Thrive assessed 01/28/24 01/28/24 10:05 Currently or been in a relationship where the following occur: no concerns reported Const Other: Physical exam today is limited due to patient's wheelchair-bound status General: no acute distress and alert Orientation/consciousness: patient oriented x3 Limitations: wheelchair HENMT Head: Yes normocephalic and Yes atraumatic Ears: TM's normal bilaterally and EAC's normal General nose exam: No nasal discharge present Face and sinus: Yes normal facial exam and Yes sinuses nontender Teeth and gingiva: dentition normal Throat: Yes posterior oropharynx normal and Yes tonsils normal (no TP congestion) Eyes Eyelids: Yes eyelids normal Conjunctivae: conjunctivae normal Pupils: Equal, round and reactive pupils present EOM: EOMs intact bilaterally Neck Neck: Yes no lymphadenopathy and Yes supple Thyroid: Thyroid normal Resp Auscultation: clear to auscultation bilaterally, no rales and no wheezes Cardio Rate: regular rate Rhythm: regular rhythm Heart sounds: no murmurs GI Palpation (GI): Soft to palpation and nontender Auscultation: normal bowel sounds General: Yes no CVA tenderness Back/Spine/Pelvis Back: no CVA tenderness Thoracic/Lumbar Spine: thoracic and lumbar spine normal to inspection Skin Lesions: no lesions Rashes: no rashes Neuro Other: (+) residual left-sided weakness from his CVA General: patient oriented x3, moves all extremities, CN's II-XI intact bilaterally and Unable to assess gait Cranial nerves: Yes Equal, round and reactive pupils present Cognition (Neuro): normal cognition Gait exam (Neuro): Unable to assess gait and Assistive device used (wheelchair) Extrem General: Yes no clubbing, cyanosis or edema Right lower extremity: knee Details: tenderness Location: of the infrapatellar area Left lower extremity: hip/thigh Details: tenderness Location: of the hip (chronic) Results AMB Hemoglobin A1c AMB Hemoglobin A1c 6.3 % Last Edit by MYLES Montalvo on 01/28/24 10:33 Results Reviewed Results Reviewed: Laboratory Last Values Hgb A1c (Clinic) 6.3 % (4.0-6.0) H 01/28/24 10:03 Assessment and Plan Assessment & Plan (1) Annual physical exam: Code(s): Z00.00 - Encounter for general adult medical examination without abnormal findings Plan: Patient has no follow up labs done recently - he was last seen in July 2023 He is currently up-to-date with his screening colonoscopy - is not due for repeat colonoscopy until 2028 (2) Diabetes mellitus: Code(s): E11.9 - Type 2 diabetes mellitus without complications Qualifiers: Diabetes mellitus complication detail: with other circulatory complications Diabetes mellitus complication status: with circulatory complication Diabetes mellitus ad terminal makeup operator insulin use: unspecified ad terminal makeup operator insulin use status Diabetes mellitus type: type 2 Qualified Code(s): E11.59 - Type 2 diabetes mellitus with other circulatory complications Plan: His in-office HgbA1c done today is at 6.3% (HgbA1c was at 6.7% a few months ago) - goal is <7.0% Reinforced diabetic diet Continue Metformin ER 500 mg QD, Jardiance 10 mg QD and Glyburide 5 mg BID (3) Pure hypercholesterolemia: Code(s): E78.00 - Pure hypercholesterolemia, unspecified Plan: He was not able to get his follow up labs done prior to his appointment today - he is again cautioned that his total and LDL cholesterol and serum triglyceride levels have all increased slightly from previous when his cholesterol levels were last checked in June 2023 Reinforced low cholesterol diet Continue Atorvastatin 40 mg QD for now Will recheck his labs and fasting lipids in 3 months for follow up - is advised that he SHOULD get these done before his next appt as it will have been almost a year since he had his cholesterol levels checked by then (4) Benign essential hypertension: Code(s): I10 - Essential (primary) hypertension Plan: Reinforced low sodium diet - goal is systolic BP of at least 120 to 130 mm or less Continue Lisinopril 40 mg QD and Amlodipine 5 mg QD Patient was also on Metoprolol at 12.5 mg BID but he stopped taking this a while back as he recalls being advised by cardiology to come off Metoprolol completely (5) CVA (cerebral vascular accident): Onset Date: ~02/2016 Comment: 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 Gunderson 2018 Code(s): R19.8 - Other specified symptoms and signs involving the digestive system and abdomen Plan: Patient states that his bowel movements (constipation alternating with diarrhea) have been better controlled with Miralax, Senna and Colace PRN and with increased dietary fiber Follow up with GI as scheduled (8) Vitamin D deficiency: Code(s): E55.9 - Vitamin D deficiency, unspecified Plan: Continue OTC Vitamin D daily (9) Urinary frequency: Code(s): R35.0 - Frequency of micturition Plan: Symptoms are most likely secondary to BPH Continue Finasteride 5 mg QD Follow up with urology as scheduled (10) Insomnia: Code(s): G47.00 - Insomnia, unspecified Qualifiers: Insomnia type: unspecified Qualified Code(s): G47.00 - Insomnia, unspecified Plan: Sleep hygiene reinforced Continue Trazodone 50 mg Q HS PRN (11) Obesity (BMI 30-39.9): Code(s): E66.9 - Obesity, unspecified Plan: Reinforced diet/lose weight; exercise is unrealistic given patient's physical condition and comorbidities Plan Follow up in 3 months Orders: Orders Hemoglobin A1c 3 Months E11.9 - Type 2 diabetes mellitus without complications Complete Blood Count Auto Diff 3 Months D64.9 - Anemia, unspecified Lipid Panel 3 Months E78.00 - Pure hypercholesterolemia, unspecified Microalbumin, Random (w Creat) 3 Months E11.9 - Type 2 diabetes mellitus without complications TSH reflex Free T4 3 Months E78.00 - Pure hypercholesterolemia, unspecified Vitamin D 25-OH Total 3 Months E55.9 - Vitamin D deficiency, unspecified Vitamin B12 and Folate 3 Months E53.8 - Deficiency of other specified B group vitamins AMB Hemoglobin A1c /06/24 E11.59 - Type 2 diabetes mellitus with other circulatory complications Comprehensive Clune. Panel Fast 3 Months E78.00 - Pure hypercholesterolemia, unspecified UA CC w/rflx Micro + Cult 3 Months R30.0 - Dysuria Coding Level of Care Code Est Pt Prev Care 40-64y([id number]) Diagnoses Annual physical exam Z00.00 Type 2 diabetes mellitus with other circulatory complication, unspecified whether ad terminal makeup operator insulin use E11.59 Diabetes mellitus complication detail: with other circulatory complications Diabetes mellitus complication status: with circulatory complication Diabetes mellitus detention insulin use: unspecified ad terminal makeup operator insulin use status Diabetes mellitus type: type 2 Pure hypercholesterolemia E78.00 Benign essential hypertension I10 Cerebrovascular accident (CVA), unspecified mechanism I63.9 CVA mechanism: unspecified Arthritis of left hip M16.12 Irregular bowel habits R19.8 Vitamin D deficiency E55.9 Urinary frequency R35.0 Insomnia, unspecified type G47.00 Insomnia type: unspecified Obesity (BMI 30-39.9) E66.9
== END 2024-01-28 11:11 | disposition home or self-care (01) ==
PROVIDERS: PCP Internal Medicine; Visit Provider Internal Medicine
DX: E11.59 Type 2 diabetes mellitus with other circulatory complications (principal)
CPT/HCPCS: 83036; 99396

== ENCOUNTER 2024-05-26 07:00 | Outpatient (REF) | payer OTHER, SELFPAY | END 2024-05-26 07:01 | disposition home or self-care (01) | LOC: HO.HMGCLNP 07:00 | PROVIDERS: PCP Internal Medicine; Visit Provider Internal Medicine | DX: Z13.89 Encounter for screening for other disorder (principal) | CPT/HCPCS: 81003 ==

== ENCOUNTER 2024-05-26 09:37 | Outpatient (REF) | payer OTHER, SELFPAY ==
[2024-05-26 13:04] LABS: MANUAL DIFF FLAG NO
[2024-05-26 13:08] LABS: Basophils Absolute Auto 0.1 X10*3/uL (0.0-0.2); Basophils Percent Auto 0.6 % (0-2); Eosinophils Absolute Auto 0.5 X10*3/uL (0.0-0.4); Eosinophils Percent Auto 6.3 % (0-4); Hematocrit 43.6 % (42.0-52.0); Hemoglobin 13.4 g/dl (14.0-18.0); Imm Gran Abs Auto 0.03 X10*3/uL (0.00-0.03); Imm Gran Pct Auto 0.4 % (0.0-0.4); Lymphocytes Absolute Auto 2.8 X10*3/uL (1.2-4.9); Lymphocytes Percent Auto 35.2 % (20-40); Mean Corpuscular HGB Conc 30.7 g/dl (31.0-36.0); Mean Corpuscular Hemoglobin 27.3 pg (27.0-33.0); Mean Corpuscular Volume 88.8 fL (80.0-98.0); Mean Platelet Volume 10.5 fL (9.4-12.4); Monocytes Absolute Auto 0.6 X10*3/uL (0.1-1.2); Monocytes Percent Auto 7.9 % (2-11); Neutrophils Absolute Auto 3.9 x10*3/uL (2.0-8.3); Neutrophils Percent Auto 49.6 % (45-73); Platelet Count 268 X10*3/uL (160-400); Red Blood Count 4.91 X10*6/uL (4.60-5.80); Red Cell Distribution Width 14.7 % (11.0-16.0); White Blood Count 7.9 X10*3/uL (4.8-10.8)
[2024-05-26 13:27] LABS: Estimated Average Glucose 143 mg/dL; Hemoglobin A1C 167.9751 umol/L; Hemoglobin A1c % 6.6 % (<6.0); Total Hemoglobin (HGBA1C) 3492.6756 umol/L
[2024-05-26 13:29] LABS: Alanine Aminotransferase 31 U/L (0-40); Albumin Level 4.1 g/dL (3.5-5.0); Alkaline Phosphatase 60 U/L (39-117); Anion Gap 13 (12-20); Aspartate Amino Transferase 19 U/L (5-37); Bilirubin Total 0.4 mg/dL (0.0-1.0); Blood Urea Nitrogen 16 mg/dL (9-16); Calcium 9.7 mg/dL (8.4-10.2); Carbon Dioxide 27 mmol/L (22-29); Chloride 106 mmol/L (96-108); Cholesterol 173 mg/dL (<200); Estimated Glomerular Filt Rate > 60; Glucose Fasting 100 mg/dL (60-99); HDL Cholesterol 49 mg/dL (>40); LDL Cholesterol Calculated 96 mg/dL (<100); Potassium 4.7 mmol/L (3.3-5.1); Sodium 141 mmol/L (135-145); Total Protein 7.6 g/dL (6.5-8.0); Triglycerides 142 mg/dL (<150)
[2024-05-26 13:50] LABS: TSH reflex Free T4 1.12 uIU/mL (0.32-4.0); Vitamin D 25-OH Total 45.4 ng/mL (>30)
[2024-05-26 13:56] LABS: Folate 10.2 ng/mL (> or = 4.0); Vitamin B12 621 pg/mL (200-900)
[2024-05-27 10:16] LABS: Appearance Urine Clear; Color Urine Yellow; Glucose Urine UA >=1000 mg/dL (Negative); Leukocyte Esterase Urine Negative (Negative); Nitrite Urine Negative (Negative); PH 5.5 (5.0-9.0); Specific Gravity - Urine >= 1.030 (1.005-1.025); UMIC TRIGGER UACC YES; Urine Blood Negative (Negative); Urine Ketones Negative (Negative); Urine Protein Trace mg/dL (Neg-Trace)
[2024-05-27 10:20] LABS: Bacteria Urine None Seen (None Seen); Hyaline Casts Urine 0-2 /LPF (0-2); RBC Urine 0-2 /HPF (0-2); WBC Urine 0-5 /HPF (0-5)
== END 2024-05-26 09:38 | disposition home or self-care (01) ==
LOC: HO.HMGCLDS 09:37
PROVIDERS: PCP Internal Medicine; Visit Provider Internal Medicine
DX: E11.59 Type 2 diabetes mellitus with other circulatory complications (principal); E78.00 Pure hypercholesterolemia, unspecified; I10 Essential (primary) hypertension; I69.354 Hemiplegia and hemiparesis following cerebral infarction affecting left non-dominant side; M16.12 Unilateral primary osteoarthritis, left hip; K59.00 Constipation, unspecified; E55.9 Vitamin D deficiency, unspecified; R35.0 Frequency of micturition; G47.00 Insomnia, unspecified; E66.9 Obesity, unspecified; Z68.37 Body mass index [BMI] 37.0-37.9, adult; D64.9 Anemia, unspecified; E53.8 Deficiency of other specified B group vitamins; Z79.82 Long term (current) use of aspirin; Z79.84 Long term (current) use of oral hypoglycemic drugs; Z79.899 Other long term (current) drug therapy; Z23 Encounter for immunization
CPT/HCPCS: 36415; 80053; 80061; 81001; 82306; 82607; 82746; 83036; 84443; 85025; 90471; 90656; 96127; 99212

== ENCOUNTER 2024-05-26 10:32 | Outpatient (AMB) | payer OTHER, SELFPAY ==
[2024-05-26 10:36] VITALS: BP 136/74; PULSE 66; O2SAT 97; BMI 37.4
--- NOTE | 2024-05-26 10:36 | A.OFFPC_ITS ---
Vital Signs 05/26/24 10:36 Height 6 ft Weight 276 lb 0.3 oz BMI 37.4 BP 136/74 Blood Pressure Location Lt brachial Position Sitting Pulse 66 Pulse Source Pulse Oximeter Pulse Oximetry (%) 97 Oxygen Delivery Method Room Air Intake Visit Reasons: CVA, DM, hyperlipidemia, HTN Professional Poker Player Required: No Accompanied by: Self / Same As Patient Allergies metformin Adverse Reaction (Unknown, Verified 05/26/24 11:02) diarrhea Medication List - Last Reconciled 05/26/24 by Silvino Vazquez MD acetaminophen 500 mg PO Q8H PRN amlodipine 5 mg PO DAILY aspirin 1 tab PO DAILY atorvastatin 40 mg PO DAILY baclofen 10 mg PO TID PRN blood sugar diagnostic (FreeStyle Lite Strips) 1 strip miscellaneous BID blood-glucose meter (FreeStyle Lite Meter kit) As directed disposable gloves (Nitrile Exam Gloves) SIZE LARGE TO USE FIVE TIMES A DAY docusate sodium 100 mg PO DAILY PRN 30 days empagliflozin (Jardiance) 10 mg PO QAM ferrous sulfate 325 mg PO DAILY finasteride 5 mg PO DAILY 90 days glyburide 5 mg PO BID incontinence pad, liner, disp TO USE FIVE TIMES A DAY lancets (FreeStyle Lancets) USE DIRECTED TWICE A DAY lisinopril 40 mg PO DAILY 90 days meloxicam 15 mg PO DAILY PRN metformin ER 500 mg PO DAILY 90 days methylcellulose (laxative) (Citrucel) 500 mg PO TID methylphenidate HCl 5 mg PO DAILY 30 days oxycodone 5 mg PO Q8H PRN 7 days polyethylene glycol 3350 (Miralax) 17 grams PO BID 30 days [POWER WHEELCHAIR As directed] sennosides (senna) 17.2 mg (2 x 8.6 mg) PO DAILY PRN 30 days sumatriptan succinate 50 mg PO ONCE PRN trazodone 50 mg PO BEDTIME Tobacco use date assessed: 05/26/24 Dental Screening Dental Screen Date: 05/26/24 Did you have a dental visit in the last 12 months?: Yes Did you have a dental problem in the last 6 months where you did not have access to dental care?: No Was dental information given to patient?: Patient has dentist HPI CVA, DM, hyperlipidemia, HTN HPI Details Patient comes in today for his follow up visit States that he feels okay He denies any headaches or dizziness Denies any chest pains, no SOB No nausea/vomiting, no abdominal pain No change in bowel habits noted States that he had his follow up labs done at our [place] location earlier this morning He would also like to get his flu shot today [facility] Medical History Obesity (BMI 30-39.9) Insomnia Arthritis of left hip Constipation Vitamin D deficiency Urinary frequency Benign essential hypertension Pure hypercholesterolemia Low back pain Enlarged prostate CVA (cerebral vascular accident) (~02/2016) Incontinence Diabetes mellitus Surgical History Hx of colonoscopy S/P laparoscopic cholecystectomy (~07/2017) Family History Mother Diabetes Hypertension High cholesterol CHF (congestive heart failure) Father Hypertension Heart problem Social History Housing: Apartment Alcohol intake: never Patient Tobacco Use Status: Never used Tobacco e-Cigarette/Vaping Use: Never Used Second Hand Smoke Exposure: Yes service: No Current occupational status: disabled Cognitive needs: Yes (wheelchair) Hearing needs: No Vision needs: Yes Questionnaire PHQ-9 Over the last 2 weeks, how often have you been bothered by any of the following problems? 1. Little interest or pleasure in doing things: not at all 2. Feeling down, depressed, or hopeless: not at all 3. Trouble falling or staying asleep, or sleeping too much: not at all 4. Feeling tired or having little energy: not at all 5. Poor appetite or overeating: not at all 6. Feeling bad about yourself - or that you are a failure or have let yourself or your family down: not at all 7. Trouble concentrating on things, such as reading the newspaper or watching television: not at all 8. Moving or speaking so slowly that other people could have noticed. Or the opposite - being so fidgety or restless that you have been moving around a lot more than usual: not at all 9. Thoughts that you would be better off or of hurting yourself in some way: not at all Total score: 0 Depression Screening Interpretation: Negative Depression Screening Done: Yes 43432 - PHQ-9 Billing: Yes Source: Developed by Drs. Ramos Erickson, Nichole Vega, Bakari Geiger and colleagues, with an educational shiela from [employer]. Thrive Questionnaire Date Thrive assessed: 05/26/24 I am a: Patient What is your living situation today?: I have a steady place to live Within the past 12 months, did the food you bought not last and you didn't have the money to get more?: Never true Within the past 12 months, did you worry whether your food would run out before you got money to buy more?: Never true Do you have trouble paying for medicines?: No Do you have trouble getting transportation to medical appointments?: No Do you have trouble paying your heating and electricity bill?: No Do you have trouble taking care of your child, family member or friend?: No Do you have trouble with day-to-day activities such as bathing, preparing meals, shopping, managing finances, etc.?: No Are you currently unemployed and looking for a job?: No Are you interested in more education?: No Please select the resources that you would like help with: None Currently or been in a relationship where the following occur: No concerns reported THRIVE Score: 0 AUDIT C Alcohol Use Questionnaire (AUDIT-C) 1. How often do you have a drink containing alcohol?: Never 3. How often do you have six or more drinks on one occasion?: Never Total Score: 0 Score Reviewed/Action Taken: Yes DARRICK-7 AMB Questionnaire DARRICK-7 Date DARRICK - 7 assessed: 05/26/24 Feeling nervous, anxious, or on edge: 0 = Not at all Not being able to stop or control worryin = Not at all Worrying too much about different things: 0 = Not at all Trouble relaxin = Not at all Being so restless that it is hard to sit still: 0 = Not at all Becoming easily annoyed or irritable: 0 = Not at all Feeling afraid as if something awful might happen: 0 = Not at all Total DARRICK-7 score (0-4 normal; 5-9 mild; 10-14 moderate; 15-21 severe): 0 Source: Developed by Drs. Ramos Erickson, Nichole Vega, Bakari Geiger and colleagues, with an educational shiela from [employer]. Review of Systems Const Denies chills, Denies fatigue, Denies fever(s), Denies headache(s) and Reports weakness (left-sided - s/p CVA) ENT Denies dysphagia, Denies dizziness, Denies otalgia, Denies headache(s), Denies neck pain, Denies odynophagia and Denies sore throat Card Denies chest pain, Denies irregular heart rhythm, Denies palpitations and Denies dyspnea Resp Denies chest congestion, Denies cough and Denies dyspnea GI Denies abdominal pain, Denies constipation, Denies dysphagia, Denies heartburn, Denies diarrhea, Denies nausea, Denies odynophagia and Denies vomiting Denies difficulty urinating, Denies dysuria and Denies urinary frequency Musc Denies back pain, Reports arthralgias (over the right knee; increased pain in the left hip) and Denies neck pain Skin/Breast Denies rash Neuro Denies dizziness, Denies headache(s) and Reports weakness (left-sided - s/p CVA) Endo Denies fatigue and Denies palpitations Physical exam (Primary Care) Vital Signs: Last Vital Signs Pulse 66 05/26/24 10:36 BP 136/74 05/26/24 10:36 Pulse Ox 97 05/26/24 10:36 Oxygen Delivery Method Room Air 05/26/24 10:36 BMI result Body Mass Index 37.4 Tobacco/Smoking Status: Tobacco use Status Tobacco use date assessed 05/26/24 05/26/24 10:40 Patient Tobacco Use Status Never used Tobacco 05/26/24 10:40 e-Cigarette/Vaping Use Never Used 05/26/24 10:40 PHQ-9: PHQ-9 Score PHQ-9: Total score 0 05/26/24 11:17 Depression Screening Interpretation: Negative Thrive Assessment: Date of Thrive Assessment Date Thrive assessed 05/26/24 05/26/24 10:40 Currently or been in a relationship where the following occur: No concerns reported Const Other: Physical exam today is limited due to patient's wheelchair-bound status General: no acute distress and alert Orientation/consciousness: patient oriented x3 Limitations: wheelchair HENMT Ears: TM's normal bilaterally and EAC's normal Throat: Yes posterior oropharynx normal and Yes tonsils normal (no TP congestion) Neck Neck: Yes no lymphadenopathy and Yes supple Thyroid: Thyroid normal Resp Auscultation: clear to auscultation bilaterally, no rales and no wheezes Cardio Rate: regular rate Rhythm: regular rhythm Heart sounds: no murmurs GI Palpation (GI): Soft to palpation and nontender Auscultation: normal bowel sounds General: Yes no CVA tenderness Back/Spine/Pelvis Back: no CVA tenderness Thoracic/Lumbar Spine: No lumbar spinal tenderness Skin Rashes: no rashes Neuro Other: (+) residual left-sided weakness from his CVA General: patient oriented x3 and Unable to assess gait Cognition (Neuro): normal cognition Gait exam (Neuro): Unable to assess gait and Assistive device used (wheelchair) Extrem General: Yes no clubbing, cyanosis or edema Right lower extremity: knee Details: tenderness Location: of the infrapatellar area Left lower extremity: hip/thigh Details: tenderness Location: of the hip (chronic) Office Procedures Flu Questionnaire Does the patient have a severe egg allergy?: No Does the patient have severe life threatening allergies?: No Does the patient have a fever or illness today?: No Has the patient ever had Guillain-[place] Syndrome?: No Has the patient ever had any past reaction to a flu shot?: No Results AMB Hemoglobin A1c AMB Hemoglobin A1c 6.5 % Last Edit by MYLES Cannon on 05/26/24 11 :18 Immunizations Fluarix Triv [id number] (PF) 45 mcg (15 mcg x 3)/0.5 mL IM syringe Performing Provider: Silvino Vazquez MD Performing Location: [facility] [place] [facility] Administered by: MYLES Cannon on 05/26/24 10:50 Dose Route Admin Location Dispensed Lot Number Expiration Date [facility] Electromechanical Assembly Technician 0.5 mL IM Right Deltoid 0.5 mL [id number] 02/20/25 [id number] [place] VIS Given Date VIS Provided VIS Publication Date 05/26/24 Single Vaccine 21 Eligibility Eligibility Date Funding Source Not [facility] Eligible 05/26/24 Private Results Reviewed Results Reviewed: Laboratory Last Values Hgb A1c (Clinic) 6.5 % (4.0-6.0) H 05/26/24 11:17 Coding Level of Care Code Est Pt Level 4 (99551) Diagnoses Type 2 diabetes mellitus with other circulatory complication, unspecified whether exterminator termite insulin use E11.59 Diabetes mellitus complication detail: with other circulatory complications Diabetes mellitus complication status: with circulatory complication Diabetes mellitus prison insulin use: unspecified exterminator termite insulin use status Diabetes mellitus type: type 2 Pure hypercholesterolemia E78.00 Benign essential hypertension I10 Cerebrovascular accident (CVA), unspecified mechanism I63.9 CVA mechanism: unspecified Arthritis of left hip M16.12 Constipation, unspecified constipation type K59.00 Constipation type: unspecified constipation type Vitamin D deficiency E55.9 Urinary frequency R35.0 Insomnia, unspecified type G47.00 Insomnia type: unspecified Obesity (BMI 30-39.9) E66.9 Assessment & Plan Assessment & Plan (1) Diabetes mellitus: Code(s): E11.9 - Type 2 diabetes mellitus without complications Category: Medical Qualifiers: Diabetes mellitus complication detail: with other circulatory complications Diabetes mellitus complication status: with circulatory complication Diabetes mellitus exterminator termite insulin use: unspecified prison insulin use status Diabetes mellitus type: type 2 Qualified Code(s): E11.59 - Type 2 diabetes mellitus with other circulatory complications Plan: His in-office HgbA1c today is at 6.5% (he was at 6.3% a few months ago) - goal is at least <7.0% and ideally <6.5% Reinforced diabetic diet Continue Metformin ER 500 mg QD, Jardiance 10 mg QD and Glyburide 5 mg BID (2) Pure hypercholesterolemia: Code(s): E78.00 - Pure hypercholesterolemia, unspecified Category: Medical Plan: Patient just had his labs done at our lab draw station in [place] earlier this morning and the results of his labs are currently still not available for review - will follow up the results of these later today and advised patient that we will reach out to him if any of his labs come back with unusual or unexpected results Reinforced low cholesterol diet Continue Atorvastatin 40 mg QD for now Will recheck his labs and fasting lipids in 4 months for follow up (3) Benign essential hypertension: Code(s): I10 - Essential (primary) hypertension Category: Medical Plan: Reinforced low sodium diet - goal is systolic BP of at least 120 to 130 mm or less Continue Lisinopril 40 mg QD and Amlodipine 5 mg QD Patient was also on Metoprolol at 12.5 mg BID but he stopped taking this a while back as he recalls being advised by cardiology to come off Metoprolol completely (4) CVA (cerebral vascular accident): Onset Date: ~02/2016 Comment: 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 Code(s): I63.9 - Cerebral infarction, unspecified Category: Medical Qualifiers: CVA mechanism: unspecified Qualified Code(s): I63.9 - Cerebral infarction, unspecified Plan: Continue Aspirin 81 mg QD Continue Methylphenidate ER 5 mg Q AM Have advised patient that he should consider whether he really still needs to take his Methylphenidate or not andit would be ideal if he can try coming off of this soon as staying on it as he gets older can increase his cardiovascular risks as Methylphenidate is considered a stimulant (5) Arthritis of left hip: Comment: Diagnosed with coxa vara of left hip and has been previously advised that he is not a good candidate for surgery Code(s): M16.12 - Unilateral primary osteoarthritis, left hip Category: Medical Plan: He was seen by orthopedics (Dr. 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 - he was recommended then to under total left hip arthropasty when possible He has been instructed in the meantime to try to lose some weight and get his diabetes under better control and to call and schedule his surgery whenever patient feels that he is ready for hip surgery Continue Oxycodone 5 mg every 8 hours PRN for increased pain and Meloxicam 15 mg QD PRN with food (6) Constipation: Code(s): K59.00 - Constipation, unspecified Category: Medical Qualifiers: Constipation type: unspecified constipation type Qualified Code(s): K59.00 - Constipation, unspecified Plan: Patient states that his bowel movements (constipation alternating with diarrhea) have been better controlled with Miralax, Senna and Colace PRN and with increased dietary fiber Follow up with GI as scheduled (7) Vitamin D deficiency: Code(s): E55.9 - Vitamin D deficiency, unspecified Category: Medical Plan: Continue OTC Vitamin D daily (8) Urinary frequency: Code(s): R35.0 - Frequency of micturition Category: Medical Plan: His symptoms are most likely secondary to BPH Continue Finasteride 5 mg QD Follow up with urology as scheduled (9) Insomnia: Code(s): G47.00 - Insomnia, unspecified Category: Medical Qualifiers: Insomnia type: unspecified Qualified Code(s): G47.00 - Insomnia, unspecified Plan: Sleep hygiene reinforced Continue Trazodone 50 mg Q HS PRN (10) Obesity (BMI 30-39.9): Code(s): E66.9 - Obesity, unspecified Category: Medical Plan: Reinforced diet/lose weight; exercise is unrealistic given patient's physical condition and comorbidities Plan As requested, flu vaccine given today Follow up in 4 months Orders: Orders Influenza [id number] Immunization 05/26/24 Z23 - Encounter for immunization Hemoglobin A1c 4 Months E11.9 - Type 2 diabetes mellitus without complications Comprehensive [place]. Panel Fast 4 Months E78.00 - Pure hypercholesterolemia, unspecified Vitamin B12 and Folate 4 Months E53.8 - Deficiency of other specified B group vitamins Vitamin D 25-OH Total 4 Months E55.9 - Vitamin D deficiency, unspecified Complete Blood Count Auto Diff 4 Months D64.9 - Anemia, unspecified Lipid Panel 4 Months E78.00 - Pure hypercholesterolemia, unspecified Microalbumin, Random (w Creat) 4 Months E11.9 - Type 2 diabetes mellitus without complications TSH reflex Free T4 4 Months E78.00 - Pure hypercholesterolemia, unspecified UA CC w/rflx Micro + Cult 4 Months R30.0 - Dysuria AMB Hemoglobin A1c 05/26/24 Z13.9 - Encounter for screening, unspecified
== END 2024-05-26 11:13 | disposition home or self-care (01) ==
PROVIDERS: PCP Internal Medicine; Visit Provider Internal Medicine
DX: E11.59 Type 2 diabetes mellitus with other circulatory complications (principal); I63.9 Cerebral infarction, unspecified; E66.9 Obesity, unspecified; Z68.37 Body mass index [BMI] 37.0-37.9, adult; E78.00 Pure hypercholesterolemia, unspecified; I10 Essential (primary) hypertension; M16.12 Unilateral primary osteoarthritis, left hip; K59.00 Constipation, unspecified; E55.9 Vitamin D deficiency, unspecified; R35.0 Frequency of micturition; G47.00 Insomnia, unspecified

== ENCOUNTER 2025-01-19 10:02 | Outpatient (REF) | payer OTHER, SELFPAY ==
--- OUTSIDE RECORDS SUMMARY | 2025-01-19 10:21 | XMS_ITS | Clinical Summary ---
Author Organization [facility] ity Address [address] [place] [address] Care Team Providers Care Master Certified Rv Technician Name Role Phone Unavailable Primary Care Provider Unavailabl e Social History Tobacco Use Types Packs/Day Years Used Date Smoking Tobacco: Never Assessed Sex and Gender Information Value Date Recorded Sex Assigned at Not on file Legal Sex Male 1:39 PM EST Gender Identity Not on file Sexual Orientation Not on file Plan of Treatment Health Maintenance Due Date Last Done Comments DTaP,Tdap,and Td Vaccines (1 - Tdap) 11/11/1986 Hepatitis B Vaccines (1 of 3 - 19+ 3-dose series) 11/11/1986 Pneumococcal Vaccine: 50+ Ye ars (1 of 1 - PCV) 11/11/2017 Zoster Vaccines (1 of 2) 11/11/2017 Cholesterol Screening (Lipid Panel) 07/22/2022 Colorectal Cancer Screening: Colonoscopy 07/22/2022 Depression Screening 07/22/2022 HIV Screening 07/22/2022 Hepatitis C Screening 07/22/2022 Social Influencers of Health Screening 07/22/2022 COVID-19 Vaccine ( - 2023-2 5 season) 2024 Influenza Vaccine (Season Ended) 2025 HIB Vaccines Aged Out No longer eligi ble based on patient's age to complete this topic HPV Vaccines Aged Out No longer eligi ble based on patient's age to complete this topic Hepatitis A Vaccines Aged Out No long er eligible based on patient's age to complete this topic IPV Vaccines Aged Out No longer eligi ble based on patient's age to complete this topic MMR Vaccines Aged Out No longer eligi ble based on patient's age to complete this topic Meningococcal ACWY Vaccine Aged Out N o longer eligible based on patient's age to complete this topic Meningococcal B Vaccine Aged Out No l onger eligible based on patient's age to complete this topic Pneumococcal Vaccine: Pediat rics (0 to 5 Years) and At-Risk Patients (6 to 64 Years) Aged Out No longer eligible b ased on patient's age to complete this topic RSV Immunization Patients Un angel 20 months Aged Out No longer eligible b ased on patient's age to complete this topic Varicella Vaccines Aged Out No longer eligible based on patient's age to complete this topic
[2025-01-19 13:35] LABS: MANUAL DIFF FLAG NO
[2025-01-19 13:43] LABS: Basophils Percent Auto 0.5 % (0-2); Eosinophils Absolute Auto 0.2 X10*3/uL (0.0-0.4); Eosinophils Percent Auto 1.8 % (0-4); Hematocrit 43.9 % (42.0-52.0); Hemoglobin 13.7 g/dl (14.0-18.0); Imm Gran Abs Auto 0.03 X10*3/uL (0.00-0.03); Imm Gran Pct Auto 0.4 % (0.0-0.4); Lymphocytes Absolute Auto 2.9 X10*3/uL (1.2-4.9); Lymphocytes Percent Auto 33.6 % (20-40); Mean Corpuscular HGB Conc 31.2 g/dl (31.0-36.0); Mean Corpuscular Hemoglobin 27.3 pg (27.0-33.0); Mean Corpuscular Volume 87.5 fL (80.0-98.0); Mean Platelet Volume 10.8 fL (9.4-12.4); Monocytes Absolute Auto 0.7 X10*3/uL (0.1-1.2); Monocytes Percent Auto 8.1 % (2-11); Neutrophils Absolute Auto 4.7 x10*3/uL (2.0-8.3); Neutrophils Percent Auto 55.6 % (45-73); Platelet Count 294 X10*3/uL (160-400); Red Blood Count 5.02 X10*6/uL (4.60-5.80); Red Cell Distribution Width 14.7 % (11.0-16.0); White Blood Count 8.5 X10*3/uL (4.8-10.8)
[2025-01-19 13:59] LABS: Estimated Average Glucose 174 mg/dL; Hemoglobin A1C 221.0234 umol/L; Hemoglobin A1c % 7.7 % (<6.0); Total Hemoglobin (HGBA1C) 3636.9641 umol/L
[2025-01-19 14:29] LABS: Alanine Aminotransferase 33 U/L (0-40); Alkaline Phosphatase 65 U/L (39-117); Anion Gap 14 (12-20); Aspartate Amino Transferase 18 U/L (5-37); Bilirubin Total 0.4 mg/dL (0.0-1.0); Blood Urea Nitrogen 16 mg/dL (9-16); Calcium 9.2 mg/dL (8.4-10.2); Carbon Dioxide 25 mmol/L (22-29); Chloride 107 mmol/L (96-108); Cholesterol 170 mg/dL (<200); Estimated Glomerular Filt Rate > 60; Glucose Fasting 129 mg/dL (60-99); HDL Cholesterol 46 mg/dL (>40); LDL Cholesterol Calculated 102 mg/dL (<100); Potassium 4.6 mmol/L (3.3-5.1); Sodium 141 mmol/L (135-145); Total Protein 7.3 g/dL (6.5-8.0); Triglycerides 112 mg/dL (<150)
[2025-01-19 14:34] LABS: TSH reflex Free T4 0.92 uIU/mL (0.32-4.0); Vitamin D 25-OH Total 37.8 ng/mL (>30)
[2025-01-19 14:54] LABS: Folate 12.4 ng/mL (> or = 4.0); Vitamin B12 853 pg/mL (200-900)
== END 2025-01-19 10:03 | disposition home or self-care (01) ==
LOC: HO.HMGCLDS 10:02
PROVIDERS: PCP Internal Medicine; Visit Provider Internal Medicine
DX: E11.59 Type 2 diabetes mellitus with other circulatory complications (principal); E78.00 Pure hypercholesterolemia, unspecified; I10 Essential (primary) hypertension; M16.12 Unilateral primary osteoarthritis, left hip; K59.00 Constipation, unspecified; E55.9 Vitamin D deficiency, unspecified; M67.431 Ganglion, right wrist; R35.0 Frequency of micturition; G47.00 Insomnia, unspecified; E66.9 Obesity, unspecified; D64.9 Anemia, unspecified; E53.8 Deficiency of other specified B group vitamins; Z86.73 Personal history of transient ischemic attack (TIA), and cerebral infarction without residual deficits; Z79.82 Long term (current) use of aspirin; Z79.84 Long term (current) use of oral hypoglycemic drugs; Z79.899 Other long term (current) drug therapy
CPT/HCPCS: 36415; 80053; 80061; 82306; 82607; 82746; 83036; 84443; 85025; 96127; 99212

== ENCOUNTER 2025-01-19 11:12 | Outpatient (AMB) | payer OTHER, SELFPAY ==
[2025-01-19 11:14] VITALS: BP 120/64; PULSE 59; O2SAT 96
--- NOTE | 2025-01-19 11:14 | MHC.PC.OV ---
Vital Signs 01/19/25 11:14 01/19/25 11:37 Height 6 ft BMI Reason not done Patient refused/unable BP 120/64 118/80 Blood Pressure Location Rt brachial Rt brachial Position Sitting Sitting Pulse 59 Pulse Source Pulse Oximeter Pulse Oximetry (%) 96 Oxygen Delivery Method Room Air Intake Visit Reasons: follow up Consulting Psychiatrist Required: No Accompanied by: Self / Same As Patient Allergies metformin Adverse Reaction (Unknown, Verified 01/19/25 11:31) diarrhea Medication List - Last Reconciled 01/19/25 by Silvino Vazquez MD acetaminophen 500 mg PO Q8H PRN amlodipine 5 mg PO DAILY aspirin 1 tab PO DAILY atorvastatin 40 mg PO DAILY baclofen 10 mg PO TID PRN blood sugar diagnostic (FreeStyle Lite Strips) 1 strip miscellaneous BID blood-glucose meter (FreeStyle Lite Meter kit) As directed disposable gloves (Nitrile Exam Gloves) SIZE LARGE TO USE FIVE TIMES A DAY docusate sodium 100 mg PO DAILY PRN 30 days empagliflozin (Jardiance) 10 mg PO QAM ferrous sulfate 325 mg PO DAILY finasteride 5 mg PO DAILY 90 days glyburide 5 mg PO BID incontinence pad, liner, disp TO USE FIVE TIMES A DAY lancets (FreeStyle Lancets) USE DIRECTED TWICE A DAY lisinopril 40 mg PO DAILY 90 days meloxicam 15 mg PO DAILY PRN metformin ER 500 mg PO DAILY 90 days methylcellulose (laxative) (Citrucel) 500 mg PO TID methylphenidate HCl 5 mg PO DAILY 30 days oxycodone 5 mg PO Q8H PRN 7 days polyethylene glycol 3350 (Miralax) 17 grams PO BID 30 days [POWER WHEELCHAIR As directed] sennosides (senna) 17.2 mg (2 x 8.6 mg) PO DAILY PRN 30 days sumatriptan succinate 50 mg PO ONCE PRN trazodone 50 mg PO BEDTIME Tobacco use date assessed: 01/19/25 Dental Screening Dental Screen Date: 01/19/25 Did you have a dental visit in the last 12 months?: No Did you have a dental problem in the last 6 months where you did not have access to dental care?: No Was dental information given to patient?: No HPI follow up HPI Details Patient comes in today for his follow up visit States that he feels okay except for a cyst on his right wrist area that he states first appeared about 2 months ago Notes that the cyst has gotten a lot bigger since and he recently has been experiencing frequent numbness and tingling sensation in his right hand and notes (+) pain over the wrist at times when he bends his wrist He denies any headaches or dizziness Denies any chest pains, no SOB No nausea/vomiting, no abdominal pain No change in bowel habits noted States that he had his follow up labs done at our [place] location earlier this morning - results of his labs are not yet available for review at this time [facility] Medical History Obesity (BMI 30-39.9) Insomnia Arthritis of left hip Constipation Vitamin D deficiency Urinary frequency Benign essential hypertension Pure hypercholesterolemia Low back pain Enlarged prostate CVA (cerebral vascular accident) (~02/2016) Incontinence Diabetes mellitus Surgical History Hx of colonoscopy S/P laparoscopic cholecystectomy (~07/2017) Family History Mother Diabetes Hypertension High cholesterol CHF (congestive heart failure) Father Hypertension Heart problem Social History Housing: Apartment Alcohol intake: never Patient Tobacco Use Status: Never used Tobacco e-Cigarette/Vaping Use: Never Used Second Hand Smoke Exposure: Yes service: No Current occupational status: disabled Cognitive needs: Yes (wheelchair) Hearing needs: No Vision needs: Yes Questionnaire PHQ-9 Over the last 2 weeks, how often have you been bothered by any of the following problems? 1. Little interest or pleasure in doing things: not at all 2. Feeling down, depressed, or hopeless: not at all 3. Trouble falling or staying asleep, or sleeping too much: not at all 4. Feeling tired or having little energy: not at all 5. Poor appetite or overeating: not at all 6. Feeling bad about yourself - or that you are a failure or have let yourself or your family down: not at all 7. Trouble concentrating on things, such as reading the newspaper or watching television: not at all 8. Moving or speaking so slowly that other people could have noticed. Or the opposite - being so fidgety or restless that you have been moving around a lot more than usual: not at all 9. Thoughts that you would be better off or of hurting yourself in some way: not at all Total score: 0 Depression Screening Interpretation: Negative Depression Screening Done: Yes 79135 - PHQ-9 Billing: Yes Source: Developed by Drs. Ramos Erickson, Nichole Vega, Bakari Geiger and colleagues, with an educational shiela from [employer]. Thrive Questionnaire Date Thrive assessed: 01/19/25 I am a: Patient What is your living situation today?: I have a steady place to live Within the past 12 months, did the food you bought not last and you didn't have the money to get more?: I choose not to answer this question Within the past 12 months, did you worry whether your food would run out before you got money to buy more?: I choose not to answer this question Do you have trouble paying for medicines?: No Do you have trouble getting transportation to medical appointments?: No Do you have trouble paying your heating and electricity bill?: No Do you have trouble taking care of your child, family member or friend?: No Do you have trouble with day-to-day activities such as bathing, preparing meals, shopping, managing finances, etc.?: No Are you currently unemployed and looking for a job?: No Are you interested in more education?: No Please select the resources that you would like help with: None Currently or been in a relationship where the following occur: No concerns reported THRIVE Score: 0 AUDIT C Alcohol Use Questionnaire (AUDIT-C) 1. How often do you have a drink containing alcohol?: Never 3. How often do you have six or more drinks on one occasion?: Never Total Score: 0 Score Reviewed/Action Taken: Yes DARRICK-7 AMB Questionnaire DARRICK-7 Date DARRICK - 7 assessed: 01/19/25 Feeling nervous, anxious, or on edge: 0 = Not at all Not being able to stop or control worryin = Not at all Worrying too much about different things: 0 = Not at all Trouble relaxin = Not at all Being so restless that it is hard to sit still: 0 = Not at all Becoming easily annoyed or irritable: 0 = Not at all Feeling afraid as if something awful might happen: 0 = Not at all Total DARRICK-7 score (0-4 normal; 5-9 mild; 10-14 moderate; 15-21 severe): 0 Source: Developed by Drs. Ramos Erickson, Nichole Vega, Bakari Geiger and colleagues, with an educational shiela from [employer]. Review of Systems Const Denies chills, Denies fatigue, Denies fever(s), Denies headache(s) and Reports weakness (left-sided - s/p CVA) ENT Denies dysphagia, Denies dizziness, Denies otalgia, Denies headache(s), Denies neck pain, Denies odynophagia and Denies sore throat Card Denies chest pain, Denies irregular heart rhythm, Denies palpitations and Denies dyspnea Resp Denies chest congestion, Denies cough and Denies dyspnea GI Denies abdominal pain, Denies constipation, Denies dysphagia, Denies heartburn, Denies diarrhea, Denies nausea, Denies odynophagia and Denies vomiting Denies difficulty urinating, Denies dysuria and Denies urinary frequency Musc Details: (+) cyst over the right wrist - see HPI for details Denies back pain, Reports arthralgias (over the right knee; increased pain in the left hip) and Denies neck pain Skin/Breast Denies rash Neuro Denies dizziness, Denies headache(s) and Reports weakness (left-sided - s/p CVA) Endo Denies fatigue and Denies palpitations Physical exam (Primary Care) Vital Signs: Last Vital Signs Pulse 59 01/19/25 11:14 BP 120/64 01/19/25 11:14 Pulse Ox 96 01/19/25 11:14 Oxygen Delivery Method Room Air 01/19/25 11:14 Tobacco/Smoking Status: Tobacco use Status Tobacco use date assessed 01/19/25 01/19/25 11:20 Patient Tobacco Use Status Never used Tobacco 01/19/25 11:20 e-Cigarette/Vaping Use Never Used 01/19/25 11:20 PHQ-9: PHQ-9 Score PHQ-9: Total score 0 01/19/25 11:20 Depression Screening Interpretation: Negative Thrive Assessment: Date of Thrive Assessment Date Thrive assessed 01/19/25 01/19/25 11:20 Currently or been in a relationship where the following occur: No concerns reported Const Other: Physical exam today is limited due to patient's wheelchair-bound status General: no acute distress and alert Orientation/consciousness: patient oriented x3 Limitations: wheelchair HENMT Ears: TM's normal bilaterally and EAC's normal Throat: Yes posterior oropharynx normal and Yes tonsils normal (no TP congestion) Neck Neck: Yes supple and No lymphadenopathy Thyroid: Thyroid normal Resp Auscultation: clear to auscultation bilaterally, no rales and no wheezes Cardio Rate: regular rate Rhythm: regular rhythm Heart sounds: no murmurs GI Palpation (GI): Soft to palpation and nontender Auscultation: normal bowel sounds General: Yes no CVA tenderness Back/Spine/Pelvis Back: no CVA tenderness Thoracic/Lumbar Spine: No lumbar spinal tenderness Skin Rashes: no rashes Neuro Other: (+) residual left-sided weakness from his CVA General: patient oriented x3 and Unable to assess gait Cognition (Neuro): normal cognition Gait exam (Neuro): Unable to assess gait and Assistive device used (wheelchair) Extrem General: Yes no clubbing, cyanosis or edema Right upper extremity: wrist ((+) palpable cyst on the radial side of volar aspect of wrist) Right lower extremity: knee Details: tenderness Location: of the infrapatellar area Left lower extremity: hip/thigh Details: tenderness Location: of the hip (chronic) Coding Level of Care Code Est Pt Level 4 (70766) Complex EM visit Add On G2211 Diagnoses Type 2 diabetes mellitus with other circulatory complication, unspecified whether care home insulin use E11.59 Diabetes mellitus complication detail: with other circulatory complications Diabetes mellitus complication status: with circulatory complication Diabetes mellitus care home insulin use: unspecified care home insulin use status Diabetes mellitus type: type 2 Pure hypercholesterolemia E78.00 Benign essential hypertension I10 Cerebrovascular accident (CVA), unspecified mechanism I63.9 CVA mechanism: unspecified Arthritis of left hip M16.12 Constipation, unspecified constipation type K59.00 Constipation type: unspecified constipation type Vitamin D deficiency E55.9 Ganglion cyst of volar aspect of right wrist M67.431 Urinary frequency R35.0 Insomnia, unspecified type G47.00 Insomnia type: unspecified Obesity (BMI 30-39.9) E66.9 Additional Codes PHQ-9 - 04570 - PHQ-9 Billing: Yes ([id number]) Assessment & Plan Assessment & Plan (1) Diabetes mellitus: Code(s): E11.9 - Type 2 diabetes mellitus without complications Category: Medical Qualifiers: Diabetes mellitus complication detail: with other circulatory complications Diabetes mellitus complication status: with circulatory complication 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: 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 status Diabetes mellitus type: type 2 Qualified Code(s): E11.59 - Type 2 diabetes mellitus with other circulatory complications Plan: Patient's lab results are not yet available to view at this time His in-office HgbA1c today was at 6.5% at his last visit a few months ago (this was previously at 6.3%) - goal is at least <7.0% and ideally <6.5% Reinforced diabetic diet Continue Metformin ER 500 mg QD, Jardiance 10 mg QD and Glyburide 5 mg BID (2) Pure hypercholesterolemia: Code(s): E78.00 - Pure hypercholesterolemia, unspecified Category: Medical Plan: Patient just had his labs done at our lab draw station in [place] earlier this morning and the results of his labs are currently still not available for review - will follow up the results of these later today and advised patient that we will reach out to him if any of his labs come back with unusual or unexpected results Reinforced low cholesterol diet Continue Atorvastatin 40 mg QD for now Will recheck his labs and fasting lipids in 4 months for follow up (3) Benign essential hypertension: Code(s): I10 - Essential (primary) hypertension Category: Medical Plan: Reinforced low sodium diet - goal is systolic BP of at least 120 to 130 mm or less Continue Lisinopril 40 mg QD and Amlodipine 5 mg QD Patient was also on Metoprolol at 12.5 mg BID but he stopped taking this a while back as he recalls being advised by cardiology to come off Metoprolol completely (4) CVA (cerebral vascular accident): Onset Date: ~02/2016 Comment: 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 Code(s): I63.9 - Cerebral infarction, unspecified Category: Medical Qualifiers: CVA mechanism: unspecified Qualified Code(s): I63.9 - Cerebral infarction, unspecified Plan: Continue Aspirin 81 mg QD Continue Methylphenidate ER 5 mg Q AM Have advised patient that he should consider whether he really still needs to take his Methylphenidate or not and it would be ideal if he can try coming off of this soon as staying on it as he gets older can increase his cardiovascular risks as Methylphenidate is considered a stimulant (5) Arthritis of left hip: Comment: Diagnosed with coxa vara of left hip and has been previously advised that he is not a good candidate for surgery Code(s): M16.12 - Unilateral primary osteoarthritis, left hip Category: Medical Plan: He was seen by orthopedics (Dr. 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 - he was recommended then to under total left hip arthropasty when possible He has been instructed in the meantime to try to lose some weight and get his diabetes under better control and to call and schedule his surgery whenever patient feels that he is ready for hip surgery Continue Oxycodone 5 mg every 8 hours PRN for increased pain and Meloxicam 15 mg QD PRN with food (6) Constipation: Code(s): K59.00 - Constipation, unspecified Category: Medical Qualifiers: Constipation type: unspecified constipation type Qualified Code(s): K59.00 - Constipation, unspecified Plan: Patient states that his bowel movements (constipation alternating with diarrhea) have been better controlled with Miralax, Senna and Colace PRN and with increased dietary fiber Follow up with GI as scheduled (7) Vitamin D deficiency: Code(s): E55.9 - Vitamin D deficiency, unspecified Category: Medical Plan: Continue OTC Vitamin D daily (8) Ganglion cyst of volar aspect of right wrist: Code(s): M67.431 - Ganglion, right wrist Category: Medical Plan: Will refer him to orthopedics for management / excision vs aspiration of his right wrist ganglion cyst (9) Urinary frequency: Code(s): R35.0 - Frequency of micturition Category: Medical Plan: His symptoms are most likely secondary to BPH Continue Finasteride 5 mg QD Follow up with urology as scheduled (10) Insomnia: Code(s): G47.00 - Insomnia, unspecified Category: Medical Qualifiers: Insomnia type: unspecified Qualified Code(s): G47.00 - Insomnia, unspecified Plan: Sleep hygiene reinforced Continue Trazodone 50 mg Q HS PRN (11) Obesity (BMI 30-39.9): Code(s): E66.9 - Obesity, unspecified Category: Medical Plan: Reinforced diet/lose weight; exercise is unrealistic given patient's physical condition and comorbidities Plan Follow up in 4 months Orders: Orders Complete Blood Count Auto Diff 4 Months D64.9 - Anemia, unspecified Comprehensive Rose. Panel Fast 4 Months E78.00 - Pure hypercholesterolemia, unspecified Microalbumin, Random (w Creat) 4 Months E11.9 - Type 2 diabetes mellitus without complications Vitamin B12 and Folate 4 Months E53.8 - Deficiency of other specified B group vitamins Vitamin D 25-OH Total 4 Months E55.9 - Vitamin D deficiency, unspecified Lipid Panel 4 Months E78.00 - Pure hypercholesterolemia, unspecified Hemoglobin A1c 4 Months E11.9 - Type 2 diabetes mellitus without complications TSH reflex Free T4 4 Months E78.00 - Pure hypercholesterolemia, unspecified UA CC w/rflx Micro + Cult 4 Months R30.0 - Dysuria Referrals Orthopedics Referral M67.431 - Ganglion, right wrist
[2025-01-19 11:37] VITALS: BP 118/80
== END 2025-01-19 11:42 | disposition home or self-care (01) ==
LOC: HO.HMCH 11:12
PROVIDERS: PCP Internal Medicine; Visit Provider Internal Medicine
DX: E11.59 Type 2 diabetes mellitus with other circulatory complications (principal); I63.9 Cerebral infarction, unspecified; I10 Essential (primary) hypertension; E78.00 Pure hypercholesterolemia, unspecified; E66.9 Obesity, unspecified; M16.12 Unilateral primary osteoarthritis, left hip; K59.00 Constipation, unspecified; E55.9 Vitamin D deficiency, unspecified; M67.431 Ganglion, right wrist; R35.0 Frequency of micturition; G47.00 Insomnia, unspecified

== ENCOUNTER 2025-03-07 13:47 | Outpatient (AMB) | payer OTHER, SELFPAY ==
--- NOTE | 2025-03-07 13:48 | A.OFFVIS_ITS ---
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 Patient reports that this cyst has been present for over a year not. The cyst has increased in size and also started to noticed. numbness and tingling is present in all of his finger. 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 Patient reports that this cyst has been present for over a year not. The cyst has increased in size and also started to noticed. numbness and tingling is present in all of his finger. [facility] Medical History Obesity (BMI 30-39.9) Insomnia Arthritis of left hip Constipation Vitamin D deficiency Urinary frequency Benign essential hypertension Pure hypercholesterolemia Low back pain Enlarged prostate CVA (cerebral vascular accident) (~02/2016) Incontinence Diabetes mellitus Surgical History Hx of colonoscopy S/P laparoscopic cholecystectomy (~07/2017) Family History Mother Diabetes Hypertension High cholesterol CHF (congestive heart failure) Father Hypertension Heart problem Social History Housing: Apartment Alcohol intake: never Patient Tobacco Use Status: Never used Tobacco e-Cigarette/Vaping Use: Never Used Second Hand Smoke Exposure: Yes service: No Current occupational status: disabled Cognitive needs: Yes (wheelchair) Hearing needs: No Vision needs: Yes Review of Systems Const All systems reviewed & are unremarkable except as noted in HPI and below Physical Exam Vital Signs: BMI result Body Mass Index 37.4 Extrem Other: Neuro: Normal sensation of the tips of all digits of bilateral hands in the office today No thenar or intrinsic wasting. Good APB muscle firing and good finger cross. Vascular: Capillary refill brisk. ROM: Patient can make a fist and extend all their digits. Skin: Large ganglion cyst noted on the radial and volar aspect of the right wrist No lacerations or abrasions noted. General: No ecchymosis. No erythema or evidence of infection. [] Assessment & Plan Assessment & Plan (1) Ganglion cyst of volar aspect of right wrist: Code(s): M67.431 - Ganglion, right wrist Category: Medical (2) Numbness and tingling of right hand: Code(s): R20.0 - Anesthesia of skin; R20.2 - Paresthesia of skin Category: Medical Plan 1. Numbness and tingling of right hand 2. Ganglion cyst of the volar right wrist Patient is educated about these conditions Patient is educated about the typical treatment course At this time, patient is referred for EMG and nerve conduction study to assess the health of the nerves of the right upper extremity Surgical intervention is discussed with the patient for his ganglion cyst, however as the patient is status post CVA both him and the constitution party present with him in the office today do not feel it is advisable to him to undergo surgery, as he uses a ana walker at baseline to ambulate However, we will still proceed with the EMG and nerve conduction study to determine if the patient does have underlying carpal tunnel syndrome Patient is amenable to this plan Follow-up after EMG and nerve conduction study Orders: Orders NE electromyogram (EMG) 03/07/25 R20.0 - Anesthesia of skin, R20.2 - Paresthesia of skin NE nerve conduction velocity 03/07/25 R20.0 - Anesthesia of skin, R20.2 - Paresthesia of skin Coding Level of Care Code New Pt Level 3 (17701) Diagnoses Ganglion cyst of volar aspect of right wrist M67.431 Numbness and tingling of right hand R20.0; R20.2
[2025-03-07 13:50] VITALS: BMI 37.4
--- OUTSIDE RECORDS SUMMARY | 2025-03-07 15:09 | XMS_ITS | Clinical Summary ---
Author Organization [facility] ity Address [address] [place] [address] Care Team Providers Care Offset Press Assistant Name Role Phone Unavailable Primary Care Provider [...] Influencers of Health Screening 07/22/2022 COVID-19 Vaccine (1 - 2023-2 5 season) 2024 Influenza Vaccine (#1) 2025 HIB Vaccines Aged Out No longer [...]
== END 2025-03-07 14:23 | disposition home or self-care (01) ==
LOC: HO.HOS 13:47
PROVIDERS: PCP Internal Medicine
DX: M67.431 Ganglion, right wrist (principal); R20.0 Anesthesia of skin; R20.2 Paresthesia of skin
CPT/HCPCS: 99203

== ENCOUNTER → 2025-03-07 13:47 | Outpatient (BNVA) | payer OTHER, SELFPAY | PROVIDERS: PCP Internal Medicine | DX: M67.431 Ganglion, right wrist (principal); R20.0 Anesthesia of skin; R20.2 Paresthesia of skin | CPT/HCPCS: 99202 ==

== ENCOUNTER 2025-05-26 13:02 | Outpatient (REF) | payer OTHER, SELFPAY ==
--- NOTE | 2025-05-26 13:15 | EMG_ITS ---
Chief complaint: Ganglion cyst in right volar wrist. Noted atrophy on right FDI. Admits to numbness on right 1st and 5th digits. History of stroke with left hemiparesis. Reason for referral: Evaluate for Carpal Tunnel Syndrome versus ulnar neuropathy Referred by: Quentin HAGAN Procedure done: Right upper extremity NCS/EMG Precautions and/or limitations: None The limb temperature was monitored continuously and remained between 32-36 degrees C during the performance of the NCS. Ulnar motor NCS was performed with moderate elbow flexion between 70-90 degrees, with across-elbow distance of 10 cm. Nerve Conduction Studies Anti Sensory Summary Table ?Stim Site NR Onset (ms) Norm Onset (ms) Peak (ms) Norm Peak (ms) O-P Amp (?V) Norm O-P Amp Site1 Site2 Delta-0 (ms) Dist (cm) Shar (m/s) Norm Shar (m/s) Right Median Anti Sensory (2nd Digit) Wrist ? 2.7 3.7 <3.6 6.8 >10 Wrist 2nd Digit 2.7 14.0 52 Right Radial Anti Sensory (Thumb) Forearm ? 2.0 2.7 <3.1 8.6 Forearm Thumb 2.0 0.0 Right Ulnar Anti Sensory (5th Digit) Wrist ? 2.8 3.9 <3.7 1.4 >15.0 Wrist 5th Digit 2.8 14.0 50 Motor Summary Table ?Stim Site NR Onset (ms) Norm Onset (ms) O-P Amp (mV) Norm O-P Amp iAmp (mV) Amp (1st) (%) Site1 Site2 Delta-0 (ms) Dist (cm) Shar (m/s) Norm Shar (m/s) Right Median Motor (Abd Poll Brev) Wrist ? 3.8 <3.9 9.4 >4.5 11.5 100.0 Elbow Wrist 5.2 22.5 43 >45 Elbow ? 9.0 8.6 11.0 91.5 Right Ulnar Motor (Abd Dig Minimi) Wrist ? 3.9 <3.0 5.2 >5 7.5 100.0 B Elbow Wrist 5.0 22.5 45 >45 B Elbow ? 8.9 3.7 5.0 71.2 A Elbow B Elbow 1.6 10.0 63 >45 A Elbow ? 10.5 3.4 4.7 65.4 Right Ulnar (FDI) Motor (FDI) Wrist ? 4.1 <3.0 2.7 >5 3.1 100.0 B Elbow Wrist 4.6 21.5 47 >45 B Elbow ? 8.7 2.6 3.0 96.3 A Elbow B Elbow 2.5 10.0 40 >45 A Elbow ? 11.2 2.8 3.0 103.7 EMG ?Side Muscle Nerve Root Ins Act Fibs Psw Amp Dur Poly Recrt Int Pat Comment Right 1stDorInt Ulnar C8-T1 Incr 1+ 1+ Nml Nml 0 Nml Complete Right FlexCarRad Median C6-7 Nml Nml Nml Nml Nml 0 Nml Complete Right FlexCarpiUln Ulnar C8,T1 Nml Nml Nml Nml Nml 0 Nml Complete Right Biceps Musculocut C5-6 Nml Nml Nml Nml Nml 0 Nml Complete Right Triceps Radial C6-7-8 Nml Nml Nml Nml Nml 0 Nml Complete Right Deltoid Axillary C5-6 Nml Nml Nml Nml Nml 0 Nml Complete FINDINGS: Right ulnar motor nerve, recording at ADM, showed prolonged distal latency, normal amplitude and normal conduction velocity. When recording at FDI, showed prolonged distal latencies, small amplitude and slow conduction velocity across elbow. Right median sensory and ulnar sensory showed small amplitudes and prolonged peak latency. All other nerves tested were within normal. Concentric needle EMG was performed in selected muscles of the right upper extremity. Study revealed signs of electric abnormalities as shown in the table above. Right FDI showed increased insertional activity, PSWs and fibrillations. IMPRESSION: 1. This is an abnormal study. 2. 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 3. There is electrodiagnostic evidence for right mild median neuropathy at the wrist, consistent with Carpal Tunnel Syndrome. 4. There is no electrodiagnostic evidence for brachial plexopathy or cervical radiculopathy. peroneal neuropathy, tibial neuropathy, lumbosacral plexopathy, lumbar radiculopathy, or Thank you for your kind referral. Jessica Lamb MD, LEAH Board Certified, [place] [employer] and [employer] (ABPMR) Board Certified, [place] Board [employer] Electrodiagnostic [employer] (ABEM) CODIN [id number] [facility]
--- OUTSIDE RECORDS SUMMARY | 2025-05-26 13:25 | XMS_ITS | Clinical Summary ---
Author Organization [facility] ity Address [address] [place] [address] Care Team Providers Care Seed Collector Name Role Phone Unavailable Primary Care Provider Unavailabl e Social History Tobacco Use Types Packs/Day Years Used Date Smoking Tobacco: Never Assessed Sex and Gender Information Value Date Recorded Sex Assigned at Not on file Legal Sex Male 1:39 PM EST Gender Identity Not on file Sexual Orientation Not on file Plan of Treatment Health Maintenance Due Date Last Done Comments Colorectal Cancer Screening: Colonoscopy 1967 DTaP,Tdap,and Td Vaccines (1 - Tdap) 11/11/1986 Hepatitis B Vaccines (1 of 3 - 19+ 3-dose series) 11/11/1986 Pneumococcal Vaccine: 50+ Ye ars (1 of 1 - PCV) 11/11/2017 Zoster Vaccines (1 of 2) 11/11/2017 Cholesterol Screening (Lipid Panel) 07/22/2022 HIV Screening 07/22/2022 Hepatitis C Screening 07/22/2022 Social Influencers of Health Screening 07/22/2022 Depression Screening 08/24/2024 COVID-19 Vaccine (1 - 2023-2 5 season) 2025 Influenza Vaccine (#1) 2025 RSV Immunization Adult Patie nts (1 - 1-dose 75+ series) 11/11/2042 HIB Vaccines Aged Out No longer eligi [...]
== END 2025-05-26 13:03 | disposition home or self-care (01) ==
LOC: HO.NEURO 13:02
PROVIDERS: PCP Internal Medicine
DX: R20.0 Anesthesia of skin (principal); R20.2 Paresthesia of skin
CPT/HCPCS: 95886; 95909

== ENCOUNTER → 2025-05-26 13:15 | Outpatient (BNV) | payer OTHER, SELFPAY | PROVIDERS: PCP Internal Medicine; Visit Provider Physical Medicine & Rehabilitation | DX: G56.21 Lesion of ulnar nerve, right upper limb (principal); G56.01 Carpal tunnel syndrome, right upper limb | CPT/HCPCS: 95886; 95909 ==

== ENCOUNTER 2025-06-05 10:01 | Outpatient (REF) | payer OTHER, SELFPAY ==
--- OUTSIDE RECORDS SUMMARY | 2025-06-05 10:10 | XMS_ITS | Clinical Summary ---
Author Organization [facility] ity Address [address] [place] [address] Care Team Providers Care Operater Name Role Phone Unavailable Primary Care Provider [...]
[2025-06-05 10:15] LABS: MANUAL DIFF FLAG NO
[2025-06-05 10:28] LABS: Hematocrit 46.6 % (42.0-52.0); Hemoglobin 14.3 g/dl (14.0-18.0); Imm Gran Abs Auto 0.02 X10*3/uL (0.00-0.03); Imm Gran Pct Auto 0.2 % (0.0-0.4); Lymphocytes Absolute Auto 3.3 X10*3/uL (1.2-4.9); Mean Corpuscular HGB Conc 30.7 g/dl (31.0-36.0); Mean Corpuscular Hemoglobin 27.6 pg (27.0-33.0); Mean Corpuscular Volume 90.0 fL (80.0-98.0); NRBC Abs Auto 0.000 X10*3/uL (0.0-0.012); NRBC Pct Auto 0.0 /100WBC (0.0-0.2); Platelet Count 270 X10*3/uL (160-400); Red Blood Count 5.18 X10*6/uL (4.60-5.80); White Blood Count 8.6 X10*3/uL (4.8-10.8)
[2025-06-05 11:05] LABS: Alanine Aminotransferase 28 U/L (0-40); Albumin Level 4.3 g/dL (3.5-5.0); Alkaline Phosphatase 67 U/L (39-117); Anion Gap 15 (12-20); Aspartate Amino Transferase 25 U/L (5-37); Blood Urea Nitrogen 15 mg/dL (9-16); Calcium 8.9 mg/dL (8.4-10.2); Carbon Dioxide 25 mmol/L (22-29); Chloride 106 mmol/L (96-108); Cholesterol 168 mg/dL (<200); Estimated Glomerular Filt Rate > 60; HDL Cholesterol 45 mg/dL (>40); Potassium 4.7 mmol/L (3.3-5.1); Sodium 141 mmol/L (135-145); Total Protein 7.5 g/dL (6.5-8.0); Triglycerides 138 mg/dL (<150)
[2025-06-05 11:29] LABS: Folate 12.8 ng/mL (> or = 4.0); Vitamin B12 841 pg/mL (200-900)
== END 2025-06-05 10:02 | disposition home or self-care (01) ==
LOC: HO.LAB 10:01
PROVIDERS: PCP Internal Medicine; Visit Provider Internal Medicine
DX: I10 Essential (primary) hypertension (principal); E11.59 Type 2 diabetes mellitus with other circulatory complications; E78.00 Pure hypercholesterolemia, unspecified; M16.12 Unilateral primary osteoarthritis, left hip; K59.00 Constipation, unspecified; E55.9 Vitamin D deficiency, unspecified; M67.431 Ganglion, right wrist; R35.0 Frequency of micturition; G47.00 Insomnia, unspecified; E66.9 Obesity, unspecified; D64.9 Anemia, unspecified; R30.0 Dysuria; E53.8 Deficiency of other specified B group vitamins; Z86.73 Personal history of transient ischemic attack (TIA), and cerebral infarction without residual deficits
CPT/HCPCS: 36415; 80053; 80061; 82306; 82607; 82746; 83036; 84443; 85025; 99212

== ENCOUNTER 2025-06-05 10:20 | Outpatient (AMB) | payer OTHER, SELFPAY ==
[2025-06-05 10:40] VITALS: BP 128/72; PULSE 62; O2SAT 97
--- NOTE | 2025-06-05 10:40 | A.OFFPC_ITS ---
Vital Signs 06/05/25 10:40 Height 6 ft BMI Reason not done Patient refused/unable BP 128/72 Blood Pressure Location Lt brachial Position Sitting Pulse 62 Pulse Source Pulse Oximeter Pulse Oximetry (%) 97 Oxygen Delivery Method Room Air Intake Visit Reasons: 4 Months+ repeat A1C Decorator Consultant Required: No Accompanied by: Self / Same As Patient Allergies metformin Adverse Reaction (Unknown, Verified 06/05/25 11:28) diarrhea Medication List - Last Reconciled 06/05/25 by Silvino Vazquez MD acetaminophen 500 mg PO Q8H PRN amlodipine 5 mg PO DAILY aspirin 1 tab PO DAILY atorvastatin 40 mg PO DAILY baclofen 10 mg PO TID PRN blood sugar diagnostic (FreeStyle Lite Strips) 1 strip miscellaneous BID blood-glucose meter (FreeStyle Lite Meter kit) As directed disposable gloves (Nitrile Exam Gloves) SIZE LARGE TO USE FIVE TIMES A DAY docusate sodium 100 mg PO DAILY PRN 30 days empagliflozin (Jardiance) 10 mg PO QAM ferrous sulfate 325 mg PO DAILY finasteride 5 mg PO DAILY 90 days glyburide 5 mg PO BID incontinence pad, liner, disp TO USE FIVE TIMES A DAY lancets (FreeStyle Lancets) USE DIRECTED TWICE A DAY lisinopril 40 mg PO DAILY 90 days meloxicam 15 mg PO DAILY PRN metformin ER 500 mg PO DAILY 90 days methylcellulose (laxative) (Citrucel) 500 mg PO TID methylphenidate HCl 5 mg PO DAILY 30 days oxycodone 5 mg PO Q8H PRN 7 days polyethylene glycol 3350 (Miralax) 17 grams PO BID 30 days [POWER WHEELCHAIR As directed] sennosides (senna) 17.2 mg (2 x 8.6 mg) PO DAILY PRN 30 days sumatriptan succinate 50 mg PO ONCE PRN trazodone 50 mg PO BEDTIME Tobacco use date assessed: 06/05/25 Dental Screening Dental Screen Date: 06/05/25 Did you have a dental visit in the last 12 months?: No Did you have a dental problem in the last 6 months where you did not have access to dental care?: No Was dental information given to patient?: Patient has dentist HPI 4 Months+ repeat A1C HPI Details Patient comes in today for his follow up visit States that he feels okay He denies any headaches or dizziness Denies any chest pains, no SOB No nausea/vomiting, no abdominal pain No change in bowel habits noted He still has the cyst on his right wrist - was seen by orthopedics back in February 2025 and was sent for EMG and NCV for further evaluation As he is using his walker when ambulating, he was advised against surgery at the time unless it is absolutely indicated He had his follow up labs done earlier today - to discuss his results [facility] Medical History Obesity (BMI 30-39.9) Insomnia Arthritis of left hip Constipation Vitamin D deficiency Urinary frequency Benign essential hypertension Pure hypercholesterolemia Low back pain Enlarged prostate CVA (cerebral vascular accident) (~02/2016) Incontinence Diabetes mellitus Surgical History Hx of colonoscopy S/P laparoscopic cholecystectomy (~07/2017) Family History Mother Diabetes Hypertension High cholesterol CHF (congestive heart failure) Father Hypertension Heart problem Social History Housing: Apartment Alcohol intake: never Patient Tobacco Use Status: Never used Tobacco e-Cigarette/Vaping Use: Never Used Second Hand Smoke Exposure: Yes service: No Current occupational status: disabled Cognitive needs: Yes (wheelchair) Hearing needs: No Vision needs: Yes Questionnaire PHQ-9 Over the last 2 weeks, how often have you been bothered by any of the following problems? Depression Screening Interpretation: Negative Depression Screening Done: Yes Source: Developed by Drs. Ramos Erickson, Nichole Vega, Bakari Geiger and colleagues, with an educational shiela from [employer]. Thrive Questionnaire Date Thrive assessed: 01/19/25 I am a: Patient What is your living situation today?: I have a steady place to live Within the past 12 months, did the food you bought not last and you didn't have the money to get more?: I choose not to answer this question Within the past 12 months, did you worry whether your food would run out before you got money to buy more?: I choose not to answer this question Do you have trouble paying for medicines?: No Do you have trouble getting transportation to medical appointments?: No Do you have trouble paying your heating and electricity bill?: No Do you have trouble taking care of your child, family member or friend?: No Do you have trouble with day-to-day activities such as bathing, preparing meals, shopping, managing finances, etc.?: No Are you currently unemployed and looking for a job?: No Are you interested in more education?: No Please select the resources that you would like help with: None Currently or been in a relationship where the following occur: No concerns reported THRIVE Score: 0 AUDIT C Alcohol Use Questionnaire (AUDIT-C) 1. How often do you have a drink containing alcohol?: Never 3. How often do you have six or more drinks on one occasion?: Never Total Score: 0 Score Reviewed/Action Taken: Yes DARRICK-7 AMB Questionnaire DARRICK-7 Date DARRICK - 7 assessed: 01/19/25 Source: Developed by Drs. Ramos Erickson, Nichole Vega, Bakari Geiger and colleagues, with an educational shiela from [employer]. Review of Systems Const Denies chills, Denies fatigue, Denies fever(s), Denies headache(s) and Reports weakness (left-sided - s/p CVA) ENT Denies dysphagia, Denies dizziness, Denies otalgia, Denies headache(s), Denies neck pain, Denies odynophagia and Denies sore throat Card Denies chest pain, Denies irregular heart rhythm, Denies palpitations and Denies dyspnea Resp Denies chest congestion, Denies cough and Denies dyspnea GI Denies abdominal pain, Denies constipation, Denies dysphagia, Denies heartburn, Denies diarrhea, Denies nausea, Denies odynophagia and Denies vomiting Denies difficulty urinating, Denies dysuria and Denies urinary frequency Musc Denies back pain, Reports arthralgias (over the right knee; increased pain in the left hip) and Denies neck pain Skin/Breast Denies rash Neuro Denies dizziness, Denies headache(s) and Reports weakness (left-sided - s/p CVA) Endo Denies fatigue and Denies palpitations Physical exam (Primary Care) Vital Signs: Last Vital Signs Pulse 62 06/05/25 10:40 BP 128/72 06/05/25 10:40 Pulse Ox 97 06/05/25 10:40 Oxygen Delivery Method Room Air 06/05/25 10:40 Tobacco/Smoking Status: Tobacco use Status Tobacco use date assessed 06/05/25 06/05/25 10:42 Patient Tobacco Use Status Never used Tobacco 06/05/25 10:42 e-Cigarette/Vaping Use Never Used 06/05/25 10:42 Depression Screening Interpretation: Negative Thrive Assessment: Date of Thrive Assessment Date Thrive assessed 01/19/25 06/05/25 10:42 Currently or been in a relationship where the following occur: No concerns reported Const Other: Physical exam today is limited due to patient's wheelchair-bound status General: no acute distress and alert Orientation/consciousness: patient oriented x3 Limitations: wheelchair HENMT Ears: TM's normal bilaterally and EAC's normal Throat: Yes posterior oropharynx normal and Yes tonsils normal (no TP congestion) Neck Neck: Yes supple and No lymphadenopathy Thyroid: Thyroid normal Resp Auscultation: clear to auscultation bilaterally, no rales and no wheezes Cardio Rate: regular rate Rhythm: regular rhythm Heart sounds: no murmurs GI Palpation (GI): Soft to palpation and nontender Auscultation: normal bowel sounds General: Yes no CVA tenderness Back/Spine/Pelvis Back: no CVA tenderness Thoracic/Lumbar Spine: No lumbar spinal tenderness Skin Rashes: no rashes Neuro Other: (+) residual left-sided weakness from his CVA General: patient oriented x3 and Unable to assess gait Cognition (Neuro): normal cognition Gait exam (Neuro): Unable to assess gait and Assistive device used (wheelchair) Extrem General: Yes no clubbing, cyanosis or edema Left lower extremity: hip/thigh Details: tenderness Location: of the hip (chronic) Results Reviewed Results Reviewed: Laboratory Tests 06/05/25 10:14 WBC 8.6 Hgb 14.3 Hct 46.6 Plt Count 270 Sodium 141 Potassium 4.7 Creatinine 0.91 Estimated GFR > 60 Fasting Glucose 128 H Hemoglobin A1c % 8.5 H Calcium 8.9 AST 25 ALT 28 Triglycerides 138 Cholesterol 168 LDL Cholesterol, Calc 96 HDL Cholesterol 45 25-OH Vitamin D Total 31.4 TSH 1.06 Coding Level of Care Code Est Pt Level 4 (54961) Diagnoses Type 2 diabetes mellitus with other circulatory complication, unspecified whether longterm insulin use E11.59 Diabetes mellitus complication detail: with other circulatory complications Diabetes mellitus complication status: with circulatory complication Diabetes mellitus intermediate card tender insulin use: unspecified longterm insulin use status Diabetes mellitus type: type 2 Pure hypercholesterolemia E78.00 Benign essential hypertension I10 Cerebrovascular accident (CVA), unspecified mechanism I63.9 CVA mechanism: unspecified Arthritis of left hip M16.12 Constipation, unspecified constipation type K59.00 Constipation type: unspecified constipation type Vitamin D deficiency E55.9 Ganglion cyst of volar aspect of right wrist M67.431 Urinary frequency R35.0 Insomnia, unspecified type G47.00 Insomnia type: unspecified Obesity (BMI 30-39.9) E66.9 Assessment & Plan Assessment & Plan (1) Diabetes mellitus: Code(s): E11.9 - Type 2 diabetes mellitus without complications Category: Medical Qualifiers: Diabetes mellitus complication detail: with other circulatory complications Diabetes mellitus complication status: with circulatory complication Diabetes mellitus longterm insulin use: unspecified intermediate card tender insulin use status Diabetes mellitus type: type 2 Qualified Code(s): E11.59 - Type 2 diabetes mellitus with other circulatory complications Plan: Results of his labs done earlier today reviewed and discussed with patient He is cautioned that his HgbA1c has gone up further from previous and is now at 8.5% (was at 7.7% back in December 2024 and his in-office HgbA1c was previously at 6.5% last May 2024) - goal is at least <7.0% and ideally <6.5% Reinforced diabetic diet - patient admits to some poor compliance with his diet at times Continue Metformin ER 500 mg QD, Jardiance 10 mg QD and Glyburide 5 mg BID Will refer him to the diabetes clinic for further evaluation and management He has expressed an interest in starting on a GLP-1 as this can also help him lose some weight He is advised that as he is being referred now to the diabetes clinic, I will defer to them the decision on whether a GLP-1 at this time would be appropriate for his diabetes (2) Pure hypercholesterolemia: Code(s): E78.00 - Pure hypercholesterolemia, unspecified Category: Medical Plan: Results of his labs done earlier today reviewed and discussed with patient Reinforced low cholesterol diet Continue Atorvastatin 40 mg QD for now Will recheck his labs and fasting lipids in 4 months for follow up (3) Benign essential hypertension: Code(s): I10 - Essential (primary) hypertension Category: Medical Plan: Reinforced low sodium diet - goal is systolic BP of at least 120 to 130 mm or less Continue Lisinopril 40 mg QD and Amlodipine 5 mg QD Patient was also on Metoprolol at 12.5 mg BID but he stopped taking this a while back as he recalls being advised by cardiology to come off Metoprolol completely (4) CVA (cerebral vascular accident): Onset Date: ~02/2016 Comment: 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 Code(s): I63.9 - Cerebral infarction, unspecified Category: Medical Qualifiers: CVA mechanism: unspecified Qualified Code(s): I63.9 - Cerebral infarction, unspecified Plan: Continue Aspirin 81 mg QD Continue Methylphenidate ER 5 mg Q AM Have advised patient that he should consider whether he really still needs to take his Methylphenidate or not and it would be ideal if he can try coming off of this soon as staying on it as he gets older can increase his cardiovascular risks since Methylphenidate is considered a stimulant (5) Arthritis of left hip: Comment: Diagnosed with coxa vara of left hip and has been previously advised that he is not a good candidate for surgery Code(s): M16.12 - Unilateral primary osteoarthritis, left hip Category: Medical Plan: He was seen by orthopedics (Dr. 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 - he was recommended then to under total left hip arthropasty when possible He has been instructed in the meantime to try to lose some weight and get his diabetes under better control and to call and schedule his surgery whenever pat iesamantha feels that he is ready for hip surgery Continue Oxycodone 5 mg every 8 hours PRN only for increased pain and Meloxicam 15 mg QD PRN with food (6) Constipation: Code(s): K59.00 - Constipation, unspecified Category: Medical Qualifiers: Constipation type: unspecified constipation type Qualified Code(s): K59.00 - Constipation, unspecified Plan: Patient's bowel movements (constipation alternating with diarrhea) have been much better controlled with Miralax, Senna and Colace PRN and with increased dietary fiber Follow up with GI as scheduled (7) Vitamin D deficiency: Code(s): E55.9 - Vitamin D deficiency, unspecified Category: Medical Plan: Continue OTC Vitamin D daily (8) Ganglion cyst of volar aspect of right wrist: Code(s): M67.431 - Ganglion, right wrist Category: Medical Plan: He was referred to and seen by orthopedics for this a few months ago and was advised against surgery at the time unless it is absolutely indicated as he uses his walker when ambulating and this may potentially complicate his post-op recov nichelle if he were to undergo surgery (9) Urinary frequency: Code(s): R35.0 - Frequency of micturition Category: Medical Plan: His symptoms are most likely secondary to BPH Continue Finasteride 5 mg QD Follow up with urology as scheduled (10) Insomnia: Code(s): G47.00 - Insomnia, unspecified Category: Medical Qualifiers: Insomnia type: unspecified Qualified Code(s): G47.00 - Insomnia, unspecified Plan: Sleep hygiene reinforced Continue Trazodone 50 mg Q HS PRN (11) Obesity (BMI 30-39.9): Code(s): E66.9 - Obesity, unspecified Category: Medical Plan: Reinforced diet/lose weight; exercise is unrealistic given patient's physical co ndition and comorbidities Plan Follow up in 4 months Orders: Orders 2 Complete Blood Count Auto Diff 4 Months D64.9 - Anemia, unspecified UA CC w/rflx Micro + Cult 4 Months R30.0 - Dysuria TSH reflex Free T4 4 Months E78.00 - Pure hypercholesterolemia, unspecified Hemoglobin A1c 4 Months E11.9 - Type 2 diabetes mellitus without complications Comprehensive Prentiss. Panel Fast 4 Months E78.00 - Pure hypercholesterolemia, unspecified Lipid Panel 4 Months E78.00 - Pure hypercholesterolemia, unspecified Microalbumin, Random (w Creat) 4 Months E11.9 - Type 2 diabetes mellitus without complications Vitamin B12 and Folate 4 Months E53.8 - Deficiency of other specified B group vitamins Vitamin D 25-OH Total 4 Months E55.9 - Vitamin D deficiency, unspecified Referrals Endocrinology Referral E11.59 - Type 2 diabetes mellitus with other circulatory complications Medications: Refilled oxycodone 5 mg PO Q8H PRN 20 tabs 0RF pain 7 days
== END 2025-06-05 11:45 | disposition home or self-care (01) ==
LOC: HO.HMCH 10:21
PROVIDERS: PCP Internal Medicine; Visit Provider Internal Medicine
DX: E11.59 Type 2 diabetes mellitus with other circulatory complications (principal); I63.9 Cerebral infarction, unspecified; E78.00 Pure hypercholesterolemia, unspecified; I10 Essential (primary) hypertension; M16.12 Unilateral primary osteoarthritis, left hip; K59.00 Constipation, unspecified; E66.9 Obesity, unspecified; E55.9 Vitamin D deficiency, unspecified; M67.431 Ganglion, right wrist; R35.0 Frequency of micturition; G47.00 Insomnia, unspecified

== ENCOUNTER 2025-06-20 13:06 | Outpatient (AMB) | payer OTHER, SELFPAY ==
--- NOTE | 2025-06-20 13:18 | A.OFFVIS_ITS ---
Vital Signs 06/20/25 13:19 Height 6 ft BP 138/72 Blood Pressure Location Rt brachial Position Sitting Pulse 64 Pulse Source Pulse Oximeter Pulse Oximetry (%) 96 Oxygen Delivery Method Room Air Intake Visit Reasons: Type 2 diabetes mellitus with other circulatory co Intake Note: New patient internally referred by PCP for T2DM. Last Diabetic Eye exam: Last exam was sometime in 2023 Last Podiatry Visit: Last visit was 1 week ago Random Glucose: 213mg/dl Hgb A1C: 8.5% 06/05/2025 Human Resource Management Instructor Required: No Accompanied by: Nephew or Niece Allergies metformin Adverse Reaction (Unknown, Verified 06/20/25 13:26) diarrhea HPI Comments Details: This is a 59-year-old male with a past medical history of sinus bradycardia, CVA with left-sided weakness, hypertension, hyperlipidemia, urinary retention and bladder outlet obstruction and type 2 diabetes presenting for an initial consult for diabetic management. He is here with his nephew, Umair. The patient was diagnosed with type 2 diabetes 5-10 years ago. There is a family history of type 2 diabetes in his mother and brothers. Patient has blood sugars in the 100s and 200s. He checks twice a day. Hemoglobin A1c 06/05/25 is 8.5%. Current medication regimen: Metformin extended release 500 mg daily, glyburide 5 mg twice a day, Jardiance 10 mg daily Past medication: Metformin listed under allergies causing diarrhea. Patient thought it was immediate release because he does not get diarrhea on his current medication. Compliance issues: No compliance issues with medication. Diet: Breakfast-bowl of cereal, zero sugar Lunch-sandwiches, gets prepared meals frequently Dinner-fish, vegetable, carbs Snacks/desserts: sugar free wafers, cookies Diet soda Eats a lot of bread and pasta Hypoglycemia symptoms: none Hyperglycemia symptoms: denies Eye exam: scheduled for 2024, last exam 09/2023 and no retinopathy Microvascular complications: Nephropathy (microalbuminuria) Macrovascular complications: No PAD or known CAD or ulcers. Patient had a hemorrhagic stroke in 2016. Hypertension: treated with amlodipine 5 mg, lisinopril 40 mg Hyperlipidemia: treated with atorvastatin 40 mg LDL at goal <100. He sees Podiatry. ROS: Constitutional: No unexplained weight loss, fever, chills or night sweats Eyes: No vision changes, blurry vision, double vision Gastrointestinal: No anorexia, nausea, vomiting or diarrhea. No abdominal pain Neurologic: No numbness, tingling or burning in the extremities. Left-sided weakness and left-sided facial droop since stroke Skin: No rash or wounds, patient checks his feet Endocrine: No cold or heat intolerance. No polyuria or polydipsia. Physical exam: Constitutional: Alert, in no distress. Neck: Supple, Full range of motion. No lymphadenopathy. No palpable thyroid masses. Respiratory: Clear to auscultation. Cardiovascular: S1 S2 regular. No murmurs. Neurologic: Hemiparesis of the left side Psychiatric: Normal mood and affect [facility] Medical History (Updated 06/20/25 @ 16:27 by BENTLEY Isaac) Diabetes mellitus with microalbuminuria Obesity (BMI 30-39.9) Insomnia Arthritis of left hip Constipation Vitamin D deficiency Urinary frequency Benign essential hypertension Pure hypercholesterolemia Low back pain Enlarged prostate CVA (cerebral vascular accident) (~02/2016) Incontinence Diabetes mellitus Surgical History Hx of colonoscopy S/P laparoscopic cholecystectomy (~07/2017) Family History Mother Diabetes Hypertension High cholesterol CHF (congestive heart failure) Father Hypertension Heart problem Social History Housing: Apartment Alcohol intake: never Patient Tobacco Use Status: Never used Tobacco e-Cigarette/Vaping Use: Never Used Second Hand Smoke Exposure: Yes service: No Current occupational status: disabled Cognitive needs: Yes (wheelchair) Hearing needs: No Vision needs: Yes Results Reviewed Results Reviewed: Laboratory Tests 09/08/24 06/05/25 09:15 10:14 Creatinine 0.91 Estimated GFR > 60 AST 25 ALT 28 Triglycerides 138 Cholesterol 168 LDL Cholesterol, Calc 96 HDL Cholesterol 45 Vitamin B12 841 TSH 1.06 Urine Creatinine 93.23 Urine Microalbumin 66.0 Microalb/Creat Ratio 70.7 H Assessment & Plan Assessment & Plan (1) Diabetes mellitus with microalbuminuria: Code(s): E11.29 - Type 2 diabetes mellitus with other diabetic kidney complication; R80.9 - Proteinuria, unspecified Category: Medical (2) Pure hypercholesterolemia: Code(s): E78.00 - Pure hypercholesterolemia, unspecified Category: Medical (3) Benign essential hypertension: Code(s): I10 - Essential (primary) hypertension Category: Medical (4) Obesity (BMI 30-39.9): Code(s): E66.9 - Obesity, unspecified Category: Medical Plan In summary this is a 59-year-old male with uncontrolled type 2 diabetes. Trial increase metformin extended release to 1000 mg daily. If he experiences diarrhea he will decrease to 500 mg daily. Continue Jardiance 10 mg daily. He would like to try a GLP 1 to help with weight loss and diabetic control. We reviewed contraindications. Patient reports a remote history of gallstone pancreatitis 20 years ago. He had a cholecystectomy. Reviewed with MD. This is not a contraindication to a GLP 1. Advised patient that he could have higher risk of pancreatitis with this type of medication and to monitor very closely for symptoms including abdominal pain, vomiting or abdominal pain radiating to the back. Warning signs warranting ER evaluation reviewed. He would like to proceed with the medication. Trial of Mounjaro 2.5 mg weekly. Side effects reviewed. Stop glyburide. Patient's insurance does not cover CGM since he does not take insulin. He will bring his glucometer with him to the next visit. Reviewed treatment of hypoglycemia. Written instructions provided. Dextrose gel sent to the pharmacy. Diabetic diet reviewed. Referred to dietitian. Follow up in 4 weeks for diabetes. Orders: Referrals Corporate Accounting Manager Nutrition Referral E11.65 - Type 2 diabetes mellitus with hyperglycemia Medications: New dextrose (TRUEplus Glucose) until symptoms of low blood sugar are controlled 15 grams (32 mL) PO Q15M PRN 128 mL 3RF hypoglycemia tirzepatide (Mounjaro) for 4 weeks 2.5 mg (0.5 mL) subcut QWEEK 2 mL 0RF Changed From metformin ER 500 mg PO DAILY 90 days 90 tabs 1RF To metformin ER 1,000 mg (2 x 500 mg) PO DAILY 180 tabs 1RF 90 days Refilled blood-glucose meter (FreeStyle Lite Meter kit) As directed 1 ea 0RF E11.9 - Type 2 diabetes mellitus without complications blood sugar diagnostic (FreeStyle Lite Strips) 1 strip miscellaneous BID 100 strips 5RF for diabetes mellitus E11.59 - Type 2 diabetes mellitus with other circulatory complications Patient Instructions: Increase Metformin extended release to 1000 mg daily. Continue Jardiance 10 mg daily Start Mounjaro 2.5 mg weekly and when you do this stop glyburide 5 mg twice daily. If you develop abdominal pain or vomiting on this medication please contact the office and stop taking it. If you experience low blood sugar (under 70), treat this by eating a chewable fruit candy like skittles or jelly beans (about 8 pieces), 4 ounces (1/2 cup) of fruit juice (not diet), 1 tablespoon of honey or 4 glucose tablets or 1 pack of dextrose gel. If your blood sugar is under 50, take double the amount of one of the above. Recheck your blood sugar in 15 minutes. www.diabetes.org. Coding Level of Care Code New Pt Level 5 (90921) Complex EM visit Add On G2211 Diagnoses Diabetes mellitus with microalbuminuria E11.29; R80.9 Pure hypercholesterolemia E78.00 Benign essential hypertension I10 Obesity (BMI 30-39.9) E66.9 Time Spent (min) 62 Comment Reviewing chart, direct patient care, completing documentation
[2025-06-20 13:19] VITALS: BP 138/72; PULSE 64; O2SAT 96
[2025-06-20 13:32] LABS: Glucose, Whole Blood 213 mg/dL (60-115)
== END 2025-06-20 14:07 | disposition home or self-care (01) ==
LOC: HO.ENCR 13:07
PROVIDERS: PCP Internal Medicine; Visit Provider Physician Assistant Medical
DX: E11.29 Type 2 diabetes mellitus with other diabetic kidney complication (principal); R80.9 Proteinuria, unspecified; E78.00 Pure hypercholesterolemia, unspecified; I10 Essential (primary) hypertension; E66.9 Obesity, unspecified

== ENCOUNTER → 2025-06-20 13:06 | Outpatient (BNVA) | payer OTHER, SELFPAY | PROVIDERS: PCP Internal Medicine; Visit Provider Physician Assistant Medical | DX: E11.29 Type 2 diabetes mellitus with other diabetic kidney complication (principal); R80.9 Proteinuria, unspecified; E78.00 Pure hypercholesterolemia, unspecified; I10 Essential (primary) hypertension; E66.9 Obesity, unspecified | CPT/HCPCS: 82947; 99202 ==